=== PATIENT | female | born 1955 | race Caucasian/White ===

== ENCOUNTER → 2016-07-18 | Outpatient (CLI) | payer BC ==
--- NOTE | 2016-07-18 15:25 | MAM ---
History: Well woman exam. Date of exam: 07/18/2016 Services provided: Bilateral full field digital screening mammography. CAD, the images were reviewed with R2 computer aided detection. FINDINGS: Glandular tissue is scattered glandular contour with increased mammographic density. Comparison with 2013 and 2015 exams exam. Focal nodular asymmetry right breast 2-3 o'clock. No dominant mass or architectural distortion on the left. No clustered microcalcifications. IMPRESSION: Incomplete exam Recommendation: True lateral and spot compression views right breast. Directed ultrasound if indicated. BIRAD CATEGORY: 0 INCOMPLETE Electronically signed by: Krupa Dixon MD 07/18/2016 3:25 PM CDT Workstation: [id number]
== END | disposition home or self-care (01) ==
LOC: MAMMO 11:10
PROVIDERS: ATTEND Obstetrics & Gynecology
DX: Z12.31 Encounter for screening mammogram for malignant neoplasm of breast (principal)

== ENCOUNTER → 2016-08-04 | Outpatient (CLI) | payer BC ==
--- NOTE | 2016-08-04 15:24 | US ---
History: Medial asymmetry right breast. DATE OF SERVICE: 08/04/2016 Services provided: Full field digital diagnostic right mammography. Directed right breast sonography FINDINGS: True lateral film with spot compression views are obtained. The focal asymmetry partially effaces. Subtle adjacent calcification is seen. Glandular tissue is dense and nodular in contour. Directed ultrasound examination demonstrates an iso to minimally hypoechoic irregularly marginated 9 mm nodule with internal calcification and vascularity. PICC echogenic rim is shown. Sonographically the mass is suspicious for a small carcinoma. IMPRESSION: Suspicious exam. 9 mm sonographic nodule 2:00 corresponds to the mammographic asymmetry. Recommendation: Ultrasound-guided needle sampling. Findings and recommendations were communicated to the patient. BIRAD CATEGORY: 4 SUSPICIOUS FINDINGS Electronically signed by: Krupa Dixon MD 08/04/2016 3:23 PM CDT Workstation: [id number]
== END | disposition home or self-care (01) ==
LOC: MAMMO 14:06
PROVIDERS: ATTEND Obstetrics & Gynecology
DX: R92.8 Other abnormal and inconclusive findings on diagnostic imaging of breast (principal)

== ENCOUNTER → 2016-08-16 | Outpatient (CLI) | payer BC ==
--- NOTE | 2016-08-16 08:45 | US ---
History: Right breast nodule. Ultrasound-guided core needle biopsy right breast nodule 2:00: A total of 10 images are submitted with a needle traversing a small nodule right breast 2:00. No complication is demonstrated. IMPRESSION: Technically successful right breast needle biopsy under ultrasound guidance performed by the patient's surgeon. Electronically signed by: Krupa Dixon MD 08/16/2016 8:44 AM CDT Workstation: [id number]
--- NOTE | 2016-08-16 09:53 | OP ---
DATE OF PROCEDURE: 08/16/16 PREOPERATIVE DIAGNOSIS: 1. Abnormal mammogram with right breast mass. POSTOPERATIVE DIAGNOSIS: 1. Abnormal mammogram with right breast mass. PROCEDURE: 1. Sonographically guided needle core biopsy, right breast mass. SURGEON: Yosef Velasquez MD. RESTORATION TECHNICIAN: None. ANESTHESIA: Local infiltration of 1% lidocaine. INDICATION: The patient is a 61-year-old female who underwent mammography which revealed a solid, mildly irregular mass at the 2 o'clock position in the right breast. She was brought to the Surgical Suite today for needle core biopsy using ultrasound guidance. FINDINGS: Multiple cores were taken which the ultrasound noted the needle in the mass. PROCEDURE: After the patient was placed in the supine position, the right breast was evaluated and the mass was identified. The breast lateral to the ultrasound probe was prepped with Betadine and draped. Local infiltration of anesthesia was obtained with 1% lidocaine and a 25-gauge needle was introduced to the mass. A stab wound was then made with a 15 blade and the needle core biopsy device was advanced. Multiple passes were taken which, as noted, the ultrasound revealed them in the mass. Good cores were identified. Hemostasis was obtained with pressure. A single suture of 4-0 Nylon was placed in the biopsy incision site. Sterile pressure dressing was applied. The patient tolerated the procedure well. Estimated blood loss was approximately 5 mL. The specimen was sent for pathologic evaluation. [facility][id number] [facility]
== END | disposition home or self-care (01) ==
LOC: US 08:00
PROVIDERS: ATTEND Surgery
DX: R92.8 Other abnormal and inconclusive findings on diagnostic imaging of breast (principal)

== ENCOUNTER → 2016-08-23 | Outpatient (CLI) | payer BC ==
--- NOTE | 2016-08-23 12:53 | RAD ---
EXAM DESCRIPTION: Chest,2 Views CLINICAL HISTORY: Malignant neoplasm of upper-inner quadrant of right female breast COMPARISON: January 28, 2007 TECHNIQUE: PA/lateral FINDINGS: The lungs are well expanded and clear. No infiltrates or effusions or masses are noted. The heart is normal in size and shape with no evidence of vascular congestion. The lebron and mediastinum demonstrate normal contours. The bony spine and chest wall is normal for age in appearance. IMPRESSION: Normal chest, two views Electronically signed by: Fransisco Nettles MD 08/23/2016 12:52 PM CDT
== END ==
LOC: LAB.O 08:53
PROVIDERS: ATTEND Surgery
DX: C50.211 Malignant neoplasm of upper-inner quadrant of right female breast (principal)

== ENCOUNTER → 2016-08-25 | Outpatient (CLI) | payer BC ==
--- NOTE | 2016-08-25 16:16 | NM ---
EXAM DESCRIPTION: Bone Scan, Whole Body CLINICAL HISTORY: CA OF BREAST COMPARISON: None TECHNIQUE: Following intravenous administration of 29 mCi technetium 99 M MDP, whole body and spot scintigraphic imaging was performed. FINDINGS: Skull: Unremarkable. Spine:Degenerative uptake. No osteoblastic lesions. Thorax:Unremarkable. Pelvis:Unremarkable.tab Extremities:Degenerative uptake. No osteoblastic lesions. Soft tissue: Normal distribution of radiopharmaceutical. IMPRESSION: No scintigraphic evidence for osteoblastic metastatic disease. Electronically signed by: Ze Aguilar MD 08/25/2016 4:15 PM CDT
== END ==
LOC: NM 07:47
PROVIDERS: ATTEND Surgery
DX: C50.211 Malignant neoplasm of upper-inner quadrant of right female breast (principal)

== ENCOUNTER 2016-09-12 05:54 | Inpatient (IN) | payer BC ==
[2016-09-12] MEDS ORDERED: ceFAZolin SODIUM 1 GM VIAL ONE ×2 (06:30→14:07)
[2016-09-12] MEDS ORDERED: SODIUM CHL 0.9% 100ML MINI-BAG 100 ML IVPB ONE (06:30)
[2016-09-12] MEDS ORDERED: LACTATED RINGERS 1,000 ML ONE ×2 (06:30→10:08)
[2016-09-12] MEDS ORDERED: fentaNYL CITRATE INJ 50 MCG/ML AMP ONE (08:29)
[2016-09-12] MEDS ORDERED: ROCURONIUM BROMIDE 10 MG/ML VIAL ONE (09:04)
[2016-09-12] MEDS ORDERED: ONDANSETRON INJ 4 MG/2 ML VIAL IV PRN (11:50)
[2016-09-12] MEDS ORDERED: NEOSTIGMINE METHYLSULFATE 1 MG/ML ML IV ONE (12:00)
[2016-09-12] MEDS ORDERED: PROPOFOL 200 MG/20 ML VIAL IV ONE (12:00)
[2016-09-12] MEDS ORDERED: ATROPINE SULFATE 0.4 MG/ML 1ML VIAL IV ONE (12:00)
[2016-09-12] MEDS ORDERED: MORPHINE SULFATE INJ 10 MG/ML VIAL ONE (12:10)
--- NOTE | 2016-09-12 13:15 | HP ---
CHIEF COMPLAINT: Biopsy proven carcinoma of the right breast. HISTORY OF PRESENT ILLNESS: The patient is a 61-year-old female who on routine mammography was found to have a questionable solid mass. Needle core sonographically guided biopsy revealed invasive carcinoma. She was brought to the Surgical Suite today for right modified radical mastectomy after the risks, benefits and alternatives to the procedure were discussed and accepted. PAST MEDICAL HISTORY: 1. Depression. PAST SURGICAL HISTORY: 1. Right ovarian cystectomy. 2. Vaginal hysterectomy. CURRENT MEDICATIONS: 1. Celexa. 2. Pravastatin. ALLERGIES: NO KNOWN DRUG ALLERGIES. FAMILY HISTORY: Positive for carcinoma of the breast at approximately age 71 in her mother. SOCIAL HISTORY: The patient is . She smokes one pack a day since age 14. Currently, she has chronic usually nonproductive cough. She does drink on a daily basis. REVIEW OF SYSTEMS: There has been no weight loss, nipple discharge, no productive cough, no change in her bowel habits, no weight loss. ASSESSMENT: 1. Biopsy proven carcinoma of the right breast. PLAN: Admission for right modified radical mastectomy under general anesthesia. The patient will be given Ancef perioperatively. #[id number] [facility]
[2016-09-12] MEDS: LACTATED RINGERS 1,000 ML IVS PRN (13:17)
--- NOTE | 2016-09-12 13:39 | OP ---
DATE OF PROCEDURE: 09/12/16 PREOPERATIVE DIAGNOSIS: 1. Biopsy proven carcinoma of the right breast. POSTOPERATIVE DIAGNOSIS: 1. Biopsy proven carcinoma of the right breast. PROCEDURE: 1. Right modified radical mastectomy. SURGEON: Yosef Velasquez MD. PRINCIPAL STATISTICAL PROGRAMMER: None. ANESTHESIA: General endotracheal. INDICATION: The patient is a 61-year-old female who on routine mammography was found to have a solid mass. Biopsy revealed an invasive carcinoma. The risks, benefits and alternatives to the procedure were discussed including lumpectomy with radiation therapy and the option of sentinel node biopsy. The patient wishes to stay in [place] and have a right modified radical mastectomy. She was brought to the Surgical Suite today for same. FINDINGS: Pathology is pending. PROCEDURE: After the patient received the Ancef and underwent general endotracheal anesthesia, she was prepped and draped in the usual sterile manner. Surgical time-out was taken. At this point, an elliptical incision was fashioned around the nipple-areolar complex including the biopsy site, first with a marking pen and then the superior flap, the skin was incised with a sharp knife and dissection was carried down through the skin and subcutaneous tissue to the breast tissue using electrocautery. At this point, Vibha thyroid grasping forceps were placed on the skin edges and the superior flap was taken in the usual manner with electrocautery, taken to the sternum medially, to the clavipectoral fascia superiorly and then to the axilla. When this flap was taken, a moist sponge was placed under the flap and the inferior flap was taken in a like manner down to the rectus abdominis fascia. When this was done, the breast was taken from the chest wall from superior and medial to lateral. Dissection was then carried into the axilla. The axillary vein was identified, as were the thoracodorsal bundle and the long thoracic nerve of Lynch. Dissection was then carried including the tissue anterior to the thoracodorsal bundle and the long thoracic nerve of Lynch and back to the breast tissue. The specimen was then sent for pathologic evaluation. The wound was irrigated copiously with saline. The effluent was noted to be clear. Hemostasis was noted to be adequate. At this point, two drains were placed, one in the axilla and one in the chest wall. They were brought in through the inferior flap, sutured in place with 3-0 Nylon ligatures. When this was done, the subcutaneous tissue was reapproximated with running 3-0 Vicryl. The wound was then irrigated through the wound and aspirated out through the drains. The skin edges were approximated with a skin stapler. The drains were placed to closed grenade suction drainage. Sterile dressing was applied. The patient was then awakened and taken to the Recovery Room in stable condition . Estimated blood loss was 150 mL. All sponge, needle and instrument counts were correct. #[id number] [facility]
[2016-09-12] MEDS ORDERED: ceFAZolin SODIUM 2 GM in SODIUM CHLORIDE 0.9% 100ML 100 ML IVPB SCH (14:00)
[2016-09-12] MEDS ORDERED: SODIUM CHLORIDE 0.9% (FLUSH) 10 ML SYG IV PRN (14:00)
[2016-09-12] MEDS ORDERED: SODIUM CHL 0.9% 50ML MIN-BAG+ 50 ML IVPB ONE (14:08)
[2016-09-12] MEDS ORDERED: CEFAZOLIN SODIUM 2 GRAM IV 50 ML IVPB ONE ×2 (14:41→19:56)
[2016-09-12] MEDS: CEFAZOLIN SODIUM 2 GRAM IV 2 GM in PREMIX BAG 1 BAG IVPB SCH ×2 (15:08→22:24)
[2016-09-12] MEDS: HYDROmorphone HCL INJ 2 MG/ML VIAL IV PRN ×2 (15:53→19:50)
[2016-09-12] MEDS ORDERED: NICOTINE PATCH 21 MG TD SCH (18:30)
[2016-09-12] MEDS ORDERED: chlordiazePOXIDE HCL 5 MG CAP PO PRN (19:25)
[2016-09-12] MEDS ORDERED: THIAMINE HCL INJ 100 MG/ML VIAL IV SCH (19:30)
[2016-09-12] MEDS ORDERED: ENOXAPARIN SODIUM 40 MG/0.4 ML SYG SUBCU ONE (19:56)
[2016-09-12] MEDS ORDERED: POTASSIUM CHLORIDE 10 MEQ TAB PO SCH (21:00)
[2016-09-12] MEDS ORDERED: POTASSIUM CHLORIDE 10 MEQ TAB PO ONE (21:02)
[2016-09-12] MEDS: PRENATAL MULTIVIT-MIN W/FE-FA 1 EA TAB PO SCH (21:08)
[2016-09-12] MEDS: chlordiazePOXIDE HCL 5 MG CAP PO SCH (21:08)
[2016-09-12] MEDS: ENOXAPARIN SODIUM 40 MG/0.4 ML SYG SUBCU SCH (21:09)
[2016-09-13] MEDS: chlordiazePOXIDE HCL 5 MG CAP PO SCH ×3 (02:53→19:54)
[2016-09-13] MEDS: HYDROcodone 5MG/APAP 325MG 1 EA TAB PO PRN ×5 (03:14→22:53)
[2016-09-13] MEDS ORDERED: CEFAZOLIN SODIUM 2 GRAM IV 50 ML IVPB ONE ×3 (05:35→19:34)
[2016-09-13] MEDS: LACTATED RINGERS 1,000 ML IVS PRN (05:43)
[2016-09-13] MEDS: CEFAZOLIN SODIUM 2 GRAM IV 2 GM in PREMIX BAG 1 BAG IVPB SCH ×3 (05:43→22:35)
[2016-09-13] MEDS: PANTOPRAZOLE SODIUM TAB 40 MG PO SCH (05:45)
--- NOTE | 2016-09-13 07:57 | CONS ---
HISTORY OF PRESENT ILLNESS: This 61 year-old white female was admitted earlier this morning for elective modified radical mastectomies on the right because of a biopsy-proven invasive carcinoma within that breast. Biopsy was obtained by needle core sonographically guided procedure. She has had a family history of high significance with most of the women having with breast cancer. She tolerated the procedure quite well and is now in the rehabilitation and recovery phase with a chest wall binder in place and is generally doing fairly well with analgesia as required. She is otherwise awake, alert, and contributory. PAST MEDICAL HISTORY: Generally unremarkable except as relates to her current illness. PAST SURGICAL HISTORY: 1. Earlier this morning a right modified mastectomy for cancer. 2. Hysterectomy. 3. Ovarian cyst. 4. Appendectomy. CURRENT MEDICATIONS: 1. Bioflavonoids. 2. Corzyme Q10. 3. [place]ar[place]. 4. Advil. 5. Potassium. 6. Pravastatin. 7. Pravachol 40 mg daily. 8. Tramadol p.r.n. 9. Maxzide. 10. Celexa. ALLERGIES: NONE KNOWN. FAMILY HISTORY: Positive for cancer, diabetes, amyotrophic lateral sclerosis, coronary artery disease and strokes. SOCIAL HISTORY: She is a homemaker. She smokes one or more packs of cigarettes a day. She drinks beer between 8 and 10 cans per day, sometimes more. She has been intoxicated in the past and has poor memory of those occasions. General nutrition has not been as good as it could be and is encouraged to stop the smoking and the alcohol with suggestions given. REVIEW OF SYSTEMS: GENERAL: No significant weight change, no fever and chills. HEENT: No hearing or vision disturbances. LUNGS: Occasional cough, no significant hemoptysis. CARDIOVASCULAR: No significant angina or palpitations. GI: No nausea or vomiting, blood in the stool or the emesis. : No dysuria. EXTREMITIES: Trace edema at times. NEUROLOGIC: No focal weakness. No significant headaches. PHYSICAL EXAMINATION: VITAL SIGNS: Afebrile. Pulse 82, blood pressure 148/76. Pulse oximetry 94% on room air. Weight 60.3 kg. GENERAL: The patient is awake, alert, and oriented and communicative. Other members of the family are also present to assist with the history. HEENT: Within normal limits. NECK: Supple. No increased jugular venous distention. CHEST: Thoracic binder in place. HEART: Heart tones are somewhat distant yet regular. Breath sounds are fairly equal bilaterally though somewhat diminished. ABDOMEN: Soft with no organomegaly or masses. Her last bowel movement was yesterday. Bowel tones are somewhat diminished. EXTREMITIES: Well-formed, good range of motion. No significant edema. NEUROLOGIC: No focal neurological deficits. Patient is awake, alert, and oriented and communicative. LABORATORY: White count 10,800, hemoglobin 14.8 preparatively. Chemistries show potassium was down to 3 at 8:40 postoperatively PM. BUN 10, creatinine 0.49, glucose 103. Urinalysis with 2+ bacteruria but no culture obtained. ASSESSMENT: 1. Immediate postoperative day #0 right modified mastectomy for invasive carcinoma diagnosed on needle biopsy. 2. History of chronic tobacco use. 3. History of chronic alcohol intake requiring close observation to prevent withdrawal symptoms. 4. History of hypokalemia showing recurrence probably secondary to Maxzide use. 5. Mild nutritional deficiencies with folate with enlarged red blood cell indices noted. PLAN: We will observe closely postoperatively for evidence of ethanol withdrawal syndrome. Will try some low-dose Librium on a regular basis and p.r.n. doses as needed for increased agitation. Will be given vitamins with folate as well as IV thiamin to assist with nutritional improvement. Continue with potassium supplementation yet increase. Stop diuretics at the present time. Reevaluate in the morning. [facility][id number] [facility]
[2016-09-13] MEDS: PRENATAL MULTIVIT-MIN W/FE-FA 1 EA TAB PO SCH ×2 (09:38→20:27)
[2016-09-13] MEDS: CITALOPRAM HBR 20 MG TAB PO SCH (09:38)
[2016-09-13] MEDS: THIAMINE HCL INJ 100 MG in SODIUM CHLORIDE 0.9% 100ML 100 ML IVPB SCH (09:39)
[2016-09-13] MEDS: POTASSIUM CHLORIDE 10 MEQ TAB PO SCH ×3 (09:41→17:27)
--- NOTE | 2016-09-13 11:36 | PN ---
DATE: 09/13/16 SUBJECTIVE: The patient is able to sit up in the bed and is able to get out of the bed quite smoothly. No significant postural lightheadedness is evident. She is awake and alert and very comfortable. She does not feel over sedated with the use of the Librium on a regular basis. She is taking her food and fluids quite well. OBJECTIVE: VITAL SIGNS: Afebrile. Pulse 76. Blood pressure 104/65. Pulse oximetry 97% on room air. Weight stable at 60.3 kg. GENERAL: The patient is awake, alert, oriented and communicative. LUNGS: Generally clear to auscultation, clearer than last evening. Still, she clears some secretions out of the back of her throat. Some intermittent rhonchi on inspiration noted, yet clear with clearing of secretions in the back of her throat. HEART: Regular. ABDOMEN: Soft with improved bowel tones. Encouraged to actively contract muscles of the lower extremity to assist with DVT prophylaxis. LABORATORY: White count 7,400, hemoglobin down from 14.8 to 11.7. Chemistries showed potassium last evening was up to 3.3 from 3 with supplementation. Glucose 94, calcium 8 this morning. Cholesterol 154. Urine culture pending. ASSESSMENT: 1. Postoperative day #1, right modified radical mastectomy for invasive carcinoma, diagnosed by needle biopsy. 2. History of chronic tobacco use. 3. History of chronic ethanol intake, requiring close observation to prevent withdrawal symptomatology. 4. History of hypokalemia, showing improvement with supplementation and stopping the Maxzide. 5. Mild nutritional deficiencies with folate with an enlarged red blood cell indices and supplementation initiated. PLAN: Continue to encourage deep breathing and active contraction and relaxation of her lower extremity muscles. Continue with her ongoing rehabilitation with attention to the volume of bulb drainage from the wound site. Continue with nutrition and close observation. Tolerating increased activity quite well and is able to get adequate fluids down. We will be able to continue with outpatient management when clinical stable from 's standpoint. [facility][id number] [facility]
[2016-09-13] MEDS ORDERED: NICOTINE PATCH 21 MG TD ONE (19:34)
[2016-09-13] MEDS: ENOXAPARIN SODIUM 40 MG/0.4 ML SYG SUBCU SCH (21:00)
[2016-09-13] MEDS ORDERED: NICOTINE PATCH 21 MG TD SCH (21:00)
[2016-09-14] MEDS: chlordiazePOXIDE HCL 5 MG CAP PO SCH (03:02)
[2016-09-14] MEDS ORDERED: CEFAZOLIN SODIUM 2 GM IVPB ONE (05:13)
[2016-09-14] MEDS: PANTOPRAZOLE SODIUM TAB 40 MG PO SCH (05:30)
[2016-09-14] MEDS: CEFAZOLIN SODIUM 2 GRAM IV 2 GM in PREMIX BAG 1 BAG IVPB SCH (05:31)
[2016-09-14] MEDS: HYDROcodone 5MG/APAP 325MG 1 EA TAB PO PRN ×2 (05:34→09:30)
[2016-09-14 06:19] VITALS: TEMP 97.6; O2SAT 96
[2016-09-14] MEDS ORDERED: THIAMINE HCL INJ 100 MG/ML VIAL ONE (07:37)
[2016-09-14] MEDS ORDERED: CEFAZOLIN SODIUM 2 GRAM IV 50 ML IVPB ONE (07:37)
[2016-09-14] MEDS ORDERED: SODIUM CHLORIDE 0.9% 100ML 0 ML IVPB ONE (07:38)
[2016-09-14] MEDS: POTASSIUM CHLORIDE 10 MEQ TAB PO SCH (07:48)
[2016-09-14] MEDS ORDERED: IV SET AND CAP CHANGE INJ INJ SCH (09:00)
[2016-09-14] MEDS: PRENATAL MULTIVIT-MIN W/FE-FA 1 EA TAB PO SCH (09:17)
[2016-09-14] MEDS: CITALOPRAM HBR 20 MG TAB PO SCH (09:17)
[2016-09-14] MEDS: THIAMINE HCL INJ 100 MG in SODIUM CHLORIDE 0.9% 100ML 100 ML IVPB SCH (09:18)
--- NOTE | 2016-09-14 09:54 | DS ---
FINAL DIAGNOSIS: 1. Carcinoma of the right breast pending pathology report. SURGICAL PROCEDURE: Right modified radical mastectomy on 09/12/16. HISTORY OF PRESENT ILLNESS: The patient is a 61-year-old female who on routine mammography was found to have a questionable solid mass. Needle core sonographically guided biopsy revealed invasive carcinoma. She was brought to the Surgical Suite today for right modified radical mastectomy after the risks, benefits and alternatives to the procedure were discussed and accepted. LABORATORY: Postoperative hemoglobin 11.7, white count 7.4, normal differential , platelet count 210,000. Preoperative chest x-ray was clear. HOSPITAL COURSE: The patient was admitted to the Surgical Suite where she underwent the modified radical mastectomy. Postoperatively, she remained afebrile and normotensive throughout her hospitalization. Her urine output was excellent with over 2 liters on the first postoperative day. She also had a bowel movement. Her MAURICIO drainage for the 24 hours prior to discharge was 105 mL and 88 mL respectively from the two drains. By the first postoperative morning , she was advanced to a regular diet. Her Rodriguez catheter was removed. She was changed to oral analgesics. Her Ancef was discontinued. She tolerated these changes well. On the second postoperative morning, she was discharged home. CONDITION ON DISCHARGE: Excellent. PROGNOSIS: Pending pathology report. DISPOSITION: She is discharged on her regular diet and all her home medications. She was also given a prescription for hydrocodone 5 mg, #40. She has agreed to continue the nicotine patch at home, which will be 21 mg per 24 hours. She is discharged with a home health consultation to [facility]. They are to call daily with the output of the MAURICIO drains. She will be appointed to see me next Monday in my office and they are instructed to call me if they have any other questions or problems. #[id number] [facility]
[2016-09-14 11:25] VITALS: BP 109/72
== END 2016-09-14 11:00 | disposition home health service (06) | DRG 581 ==
LOC: AMB 05:54 → MS 13:00
PROVIDERS: ADMIT Surgery; ATTEND Surgery
PROC: 07B50ZX Excision of Right Axillary Lymphatic, Open Approach, Diagnostic (ICD-10-PCS; 2016-09-12)
PROC: 0HTT0ZZ Resection of Right Breast, Open Approach (ICD-10-PCS; principal; 2016-09-12 08:48)
DX: C50.911 Malignant neoplasm of unspecified site of right female breast (principal); E87.6 Hypokalemia; T50.2X5A Adverse effect of carbonic-anhydrase inhibitors, benzothiadiazides and other diuretics, initial encounter; E53.8 Deficiency of other specified B group vitamins; F32.9 Major depressive disorder, single episode, unspecified; F17.210 Nicotine dependence, cigarettes, uncomplicated; Z80.3 Family history of malignant neoplasm of breast; Z79.1 Long term (current) use of non-steroidal anti-inflammatories (NSAID); Z79.899 Other long term (current) drug therapy; Z72.89 Other problems related to lifestyle; Y92.009 Unspecified place in unspecified non-institutional (private) residence as the place of occurrence of the external cause

== ENCOUNTER 2016-10-17 05:52 | Day surgery (SDC) | payer BC ==
[2016-10-17] MEDS ORDERED: SODIUM CHL 0.9% 100ML MINI-BAG 100 ML IVPB ONE (06:34)
[2016-10-17] MEDS ORDERED: ceFAZolin SODIUM 1 GM VIAL ONE (06:34)
[2016-10-17] MEDS ORDERED: LACTATED RINGERS 1,000 ML ONE (06:34)
[2016-10-17] MEDS ORDERED: SODIUM BICARBONATE VIAL 50 MEQ/50 ML VIAL ONE (08:23)
[2016-10-17] MEDS ORDERED: LIDOCAINE 1% 50 ML VIAL INJ ONE (08:23)
[2016-10-17] MEDS ORDERED: HEPARIN SODIUM 100 U/ML 5 ML SYG IV ONE (08:24)
[2016-10-17] MEDS ORDERED: SODIUM CHLORIDE 0.9% 50 ML VIAL ONE (08:24)
[2016-10-17] MEDS ORDERED: fentaNYL CITRATE INJ 50 MCG/ML AMP ONE (08:36)
[2016-10-17] MEDS ORDERED: MIDAZOLAM INJ 5 MG/5 ML VIAL ONE (08:36)
[2016-10-17] MEDS ORDERED: LEVALBUTEROL NEBS 1.25 MG/3 ML VIAL NEB ONE (08:42)
[2016-10-17] MEDS ORDERED: LIDOCAINE 1% 10 ML VIAL INJ ONE (09:00)
[2016-10-17] MEDS ORDERED: PROPOFOL 200 MG/20 ML VIAL IV ONE (09:00)
[2016-10-17] MEDS ORDERED: POTASSIUM CHLORIDE 40mEq 20ML VIAL ONE (09:33)
[2016-10-17] MEDS ORDERED: SODIUM CHLORIDE 0.9% 250ML 250 ML ONE (09:49)
[2016-10-17] MEDS ORDERED: LIDOCAINE 2% 5 ML VIAL ONE (10:20)
[2016-10-17 10:39] VITALS: BP 140/80; TEMP 96.8; O2SAT 97
--- NOTE | 2016-10-17 10:42 | OP ---
DATE OF PROCEDURE: 10/17/16 PREOPERATIVE DIAGNOSIS: 1. Carcinoma of the right breast, to begin adjuvant chemotherapy. POSTOPERATIVE DIAGNOSIS: 1. Carcinoma of the right breast, to begin adjuvant chemotherapy. PROCEDURE: 1. Insertion of left subclavian venous access port. SURGEON: Yosef Velasquez MD. ROBOT DESIGNER: None. ANESTHESIA: Local infiltration of 1% lidocaine and IV sedation by Anesthesia. INDICATION: The patient is a 61-year-old female who underwent mastectomy for right breast carcinoma. She turned out to have multicentric disease as she has been seen by oncology and chemotherapy is planned. She was brought to the Surgical Suite today for insertion of a left subclavian venous access port after the risks, benefits and alternatives to the procedure were discussed and accepted. FINDINGS: The subclavian vein was identified with the first stick using a 25- gauge needle. The fluoroscopy revealed the guidewire and then the catheter in the superior vena cava. Post procedure chest x-ray is pending. PROCEDURE: After the patient was brought to the Surgical Suite and placed in the supine position, she was prepped and draped in the usual sterile manner. A surgical time-out was taken. IV sedation was given at this time. The infraclavicular area was infiltration with local anesthesia and the 25-gauge needle was easily introduced under the clavicle and advanced until venous blood was aspirated. The 18-gauge thin wall needle was then introduced in the same manner. Venous blood was aspirated. The guidewire was introduced without difficulty to approximately 25 cm. The needle was removed. A towel was placed over the field and fluoroscopy was used to identify the guidewire in good position. A port pocket was then formed in the usual manner with local infiltration of anesthesia, a sharp knife, electrocautery and blunt dissection. A stab wound was made over the guidewire at the insertion site. At this point , the catheter was tunneled from the port pocket to the insertion site. The port was then introduced into the port pocket and sutured in placed with two sutures of 3-0 Prolene. When these were tightened and tied, the catheter was cut to appropriate length. The dilator introducer was introduced over the guidewire. The guidewire and dilator were removed. The catheter was introduced through the introducer and the introducer was removed in the usual manner. At this point, the catheter is accessed with the Lamas needle. Venous blood was easily aspirated. It was then flushed first with 10 cc of heparinized saline and then with heplock. When this was done, a towel was placed over the field and fluoroscopy was used to identify the catheter in adequate position. The port pocket incision was then closed in two layers with the subcutaneous tissues reapproximated with interrupted 3-0 Vicryl sutures and the skin edges approximated with 4-0 Vicryl subcuticular sutures, benzoin and Steri-Strips, as was the insertion site. When this was done, sterile dressings were applied. The patient was awakened and taken to the Ambulatory Unit in stable condition. Estimated blood loss was approximately 25 cc. All sponge, needle and instrument counts were correct. #[id number] [facility]
--- NOTE | 2016-10-17 11:12 | RAD ---
Study: Single Frontal View of the Chest. Indication:POST PORT PLACEMENT Comparison: August 23, 2016. IMPRESSION: Left subclavian venous port tip terminates in the distal brachiocephalic vein. Heart size normal. Lungs clear. No pneumothorax. No acute osseous abnormality. Electronically signed by: Lc Velez MD 10/17/2016 11:11 AM CDT
== END 2016-10-17 11:45 | disposition home or self-care (01) ==
LOC: AMB 05:52
PROVIDERS: ATTEND Surgery
DX: C50.911 Malignant neoplasm of unspecified site of right female breast (principal); F41.9 Anxiety disorder, unspecified; E78.5 Hyperlipidemia, unspecified; J44.9 Chronic obstructive pulmonary disease, unspecified; F17.210 Nicotine dependence, cigarettes, uncomplicated; Z79.899 Other long term (current) drug therapy
CPT/HCPCS: 00532; 36415; 36561; 71010; 80048; 81001; 85025; A4216; C1788; J0690; J1642; J2250; J3010; J3480; J3490; J7050; J7120; J7614

== ENCOUNTER 2016-11-16 02:59 | Emergency (ER) | payer BC ==
--- NOTE | 2016-11-16 03:03 | ED.PDOC ---
History of Present Illness - General Chief Complaint: ENT Problem Stated Complaint: sore throat Time Seen by Provider: 11/16/16 03:01 Source: patient Exam Limitations: no limitations - History of Present Illness Initial Comments: Telma Hernandez 61 y/o female stated that the last 2 days had been having achy throat presently on her 2nd dose of chemotherapy for stage 2-A breast cancer right breast;denies fever chills but also with cough and congestion. Timing/Duration: gradual EENT Location: throat Prearrival Treatment: over the counter meds Presenting Symptoms: see hpi Improving Factors: nothing Worsening Factors: eating Associated Symptoms: cough, nasal congestion/drainage Allergies/Adverse Reactions: Allergies NO KNOWN ALLERGY Allergy (Unverified 07/05/14 21:24) Home Medications: Ambulatory Orders Tramadol HCl [Ultram] 50 mg PO Q6H #20 tab 07/21/14 Bioflavonoid Products [Bioflex] 1 tab PO PRN PRN 09/09/16 Citalopram Hydrobromide [CeleXA] 20 mg PO DAILY 09/09/16 Coenzyme Q10 (Ubidecarenone) [Co Q-10] 150 mg PO DAILY 09/09/16 Guarana (Paullinia Cupana) [Guarana] 1,000 mg PO PRN PRN 09/09/16 Ibuprofen [Advil] 600 mg PO DAILY@69909/09/16 Potassium 75 mg PO PRN PRN 09/09/16 Pravastatin Sodium [Pravachol] 40 mg PO DAILY@0709/09/16 Triamterene & Hydrochlorothiaz [Triamterene/Hydrochloroth] 1 cap PO DAILY@69909/09/16 HYDROcodone 5MG/APAP 325MG [Windfall 5/325] 1 - 2 ea PO Q4H PRN #40 09/14/16 Nicotine Patch 21 mg [Habitrol Patch 21mg] 1 ea TD BEDTIME 09/14/16 Potassium Chloride Tab [Micro-K] 20 meq PO TIDFD 09/14/16 levoFLOXacin [Levaquin] 500 mg PO QD #7 tab 11/16/16 Review of Systems - Review of Systems Constitutional: States: no symptoms reported EENTM: States: see HPI Respiratory: States: see HPI Cardiology: States: no symptoms reported Gastrointestinal/Abdominal: States: no symptoms reported Genitourinary: States: no symptoms reported Past Medical History (General) - Patient Medical History Hx Seizures: No Hx Stroke: No Hx Dementia: No Hx Asthma: No Hx of COPD: No Hx Cardiac Disorders: No Hx Congestive Heart Failure: No Hx Pacemaker: No Hx Hypertension: No Hx Thyroid Disease: No Hx Diabetes: No Hx Renal Disease: No Hx Cancer: Yes - breast Hx of HIV: No Hx MRSA: No Surgical History: other - mastectomy right,hysterectomy - Vaccination History Hx Tetanus, Diphtheria Vaccination: No - over 5 years - Social History Hx Tobacco Use: Yes Hx Alcohol Use: Yes - Activities of Daily Living Patient Lives Alone: No - daughter - Female History Patient : No Family Medical History - Family History Mother Family History: Unknown Hx Family Cancer: Yes - breast multiple family members Physical Exam - Physical Exam General Appearance: Alert, No apparent distress Eye Exam: bilateral normal Ear Exam: bilateral ear: auricle normal, canal normal, TM normal Nasal Exam: discharge - clear Throat Exam: normal mouth inspection, other - pharyngeal erythema Neck: non-tender, supple, normal inspection Cardiovascular/Respiratory: regular rate, rhythm, normal peripheral pulses, rales - left side Neurologic: no motor/sensory deficits, alert, oriented x 3 Skin Exam: normal color, warm/dry Progress - Progress Progress: 11/16/16 05:02 Vital Signs - 8 hr 11/16/16 03:16 Temperature 102.4 F H Pulse Rate [ 96 H Right] Respiratory 16 Rate Blood Pressure 116/68 [Left Arm] O2 Sat by Pulse 93 L Oximetry Laboratory Tests 11/16/16 11/16/16 03:02 03:45 WBC 3.4 L RBC 3.24 L Hgb 10.3 L Hct 30.1 L MCV 92.9 MCH 31.7 H MCHC 34.1 RDW 14.0 Plt Count 155 MPV 9.3 Absolute Neuts (auto) 2.20 Absolute Lymphs (auto) 0.60 L Absolute Monos (auto) 0.60 Absolute Eos (auto) 0.00 Absolute Basos (auto) 0.00 Neutrophils % Not Reportable Neutrophils % (Manual) 35.0 Lymphocytes % Not Reportable Lymphocytes % (Manual) 18.0 Monocytes % Not Reportable Monocytes % (Manual) 22.0 Eosinophils % Not Reportable Basophils % Not Reportable Band Neutrophils 25.0 RBC Morphology 2+spherocytes Group A Strep DNA Negative Departure - Departure Clinical Impression: Sore throat, Leukopenia due to antineoplastic chemotherapy, History of breast cancer in female, Bronchitis Time of Disposition: 05:05 Disposition: Discharge to Home or Self Care Condition: Fair Departure Forms: ED Discharge - Pt. Copy, Patient Portal Self Enrollment Instructions: DI for Chemotherapy -- Adult, Problems Related to Chemotherapy, Tips on Coping With Mouth, Gum, and Throat Problems Related to Chemotherapy, Coping With the Side Effects of Chemotherapy, Coping With Pain Related to Cancer and Chemotherapy, Coping With Hair Loss From Chemotherapy, Tips on Preventing Infection Related to Chemotherapy, Eating Well While Receiving Chemotherapy, Cancer Chemotherapy Support (Alternative Therapy) Referrals: Aneesh Nieves MD [Primary Care Provider] - 1-2 Weeks Prescriptions: levoFLOXacin [Levaquin] 500 mg PO QD #7 tab Home Medications: Ambulatory Orders Tramadol HCl [Ultram] 50 mg PO Q6H #20 tab 07/21/14 Bioflavonoid Products [Bioflex] 1 tab PO PRN PRN 09/09/16 Citalopram Hydrobromide [CeleXA] 20 mg PO DAILY 09/09/16 Coenzyme Q10 (Ubidecarenone) [Co Q-10] 150 mg PO DAILY 09/09/16 Guarana (Paullinia Cupana) [Guarana] 1,000 mg PO PRN PRN 09/09/16 Ibuprofen [Advil] 600 mg PO DAILY@0709/09/16 Potassium 75 mg PO PRN PRN 09/09/16 Pravastatin Sodium [Pravachol] 40 mg PO DAILY@0709/09/16 Triamterene & Hydrochlorothiaz [Triamterene/Hydrochloroth] 1 cap PO DAILY@69909/09/16 HYDROcodone 5MG/APAP 325MG [Windfall 5/325] 1 - 2 ea PO Q4H PRN #40 09/14/16 Nicotine Patch 21 mg [Habitrol Patch 21mg] 1 ea TD BEDTIME 09/14/16 Potassium Chloride Tab [Micro-K] 20 meq PO TIDFD 09/14/16 levoFLOXacin [Levaquin] 500 mg PO QD #7 tab 11/16/16 Additional Instructions: NEED TO CALL ONCOLOGIST Dr. MATIAS in am during office hours by patient;OVER THE COUNTER MEDICATION-Benadryl Lquid,Maalox Liquid ,Chloraseptic liquid-MIX a Teaspoon each then swish inside mouth for 15 seconds and spit out use 3 x a day; Return to emergency room as needed
[2016-11-16 03:21] VITALS: O2SAT 93
--- NOTE | 2016-11-16 03:49 | RAD ---
Procedure: XR CHEST 2 VIEWS Exam Date: 11/16/2016 Ordering Provider: Chito Huber Clinical Indication: rales Comparison: 10/17/2016 Findings: Left chest portacatheter with tip stable in position. Cardiomediastinal silhouette is within normal limits. Focal lung consolidation: Lingular subsegmental atelectasis and/or infiltrate. Right lung is clear. Pleural effusion: None Pneumothorax: None Acute bony or soft tissue abnormality: None Impression: 1. Lingular subsegmental atelectasis and/or infiltrate. Electronically signed by: Timmy Rivera MD 11/16/2016 3:48 AM CDT
[2016-11-16] MEDS ORDERED: levoFLOXacin 500MG IV 500 MG in PREMIX BAG 1 BAG IVPB ONE (04:58)
[2016-11-16] MEDS ORDERED: PROMETHAZINE HCL INJ 25 MG/ML VIAL IM ONE (04:59)
[2016-11-16] MEDS ORDERED: MORPHINE SULFATE INJ 10 MG/ML VIAL IV ONE (04:59)
[2016-11-16] MEDS ORDERED: levoFLOXacin 500MG IV 100 ML IVPB ONE (05:05)
[2016-11-16] MEDS ORDERED: HYDROCOD/APAP 7.5/325 (ER DISP) #3 TAB PO ONE (05:13)
[2016-11-16] MEDS ORDERED: MORPHINE SULFATE INJ 10 MG/ML VIAL IM ONE (05:18)
[2016-11-16] MEDS ORDERED: levoFLOXacin 500 MG TAB PO ONE (05:19)
[2016-11-16 05:39] VITALS: BP 120/70; TEMP 101.2
== END 2016-11-16 05:46 | disposition home or self-care (01) ==
LOC: ER 02:59
DX: C50.919 Malignant neoplasm of unspecified site of unspecified female breast (principal); D70.1 Agranulocytosis secondary to cancer chemotherapy; J40 Bronchitis, not specified as acute or chronic; Z90.10 Acquired absence of unspecified breast and nipple; Z79.899 Other long term (current) drug therapy
CPT/HCPCS: 36415; 71020; 81001; 85025; 87070; 87086; 87651; J1956; J2270; J2550

== ENCOUNTER → 2017-03-14 | Outpatient (CLI) | payer BC ==
--- NOTE | 2017-03-14 20:03 | CT ---
EXAM DESCRIPTION: Abdomen/Pelvis w/wo Contrast: Computed Tomography. CLINICAL HISTORY: BREAST CANCER COMPARISON: None. TECHNIQUE: Spiral-axial scans at 5.0 mm intervals through the abdomen and pelvis before and after standard dose nonionic IV contrast. No oral contrast. Coronal and sagittal 2.0 mm reconstructions. 5 mm Delayed helical-axial scans, liver through the pubic symphysis. No adverse reactions. Total Exam DLP 2232.01 mGy - cm. This exam was performed according to our departmental CT dose-optimization program which includes automated exposure control, adjustment of the mA and/or kV according to patient size and/or use of iterative reconstruction technique; to reduce radiation dose to as low as reasonably achievable (ALARA). FINDINGS: Lung bases and pleura: Unremarkable. Liver, Stomach, Spleen, Adrenal Glands: Heterogeneous low-density of the liver. No hepatomegaly or focal lesions. Smooth capsule. No intrahepatic biliary dilatation. Radiodense material in the distal esophagus with small hiatal hernia. Stomach otherwise unremarkable. Other solid organs are negative. Pancreas, Gallbladder, Ducts: Gallbladder visualized. Common bile duct minimally dilated proximally. Pancreas negative. Kidneys and Ureters: 1.5 mm radiodense stone in the lower collecting system of the left kidney and similar size stone in the inferior collecting system of the right kidney with no hydronephrosis bilaterally. Unremarkable enhancement and no perinephric edema. Bilateral ureters are negative. Mesentery: No free fluid or free air. Aorta: Moderate atherosclerotic calcification. Minimal intimal wall thickening. Small Bowel: Fluid within most of the small bowel with small air-fluid levels. No obstruction. Terminal Ileum/Cecum: Normal caliber. Surgical clips inferior cecum. Appendix not seen. Colon: Normal caliber and fecal material throughout. Diverticula are increasing in number proximally to distally. No complications. Pelvic Organs: Vaginal cuff visualized. No fluid in the cul-de-sac. Small ovaries in the adnexa. No pelvic masses. Spine and Bony Pelvis: Lumbar levoscoliosis. Minimal spondylosis. No sclerotic or lytic lesions. Abdominal Wall/Back Soft Tissues: Unremarkable. IMPRESSION: 1. Steatosis of the liver but no enlargement. No ascites. No intrahepatic biliary dilatation. 2. Common bile duct may be enlarged proximally. Consider right upper quadrant ultrasound evaluation. 3. Bilateral renal stones less than 2 mm in diameter in the lower collecting systems. No hydronephrosis. 4. Diverticulosis of the colon more numerous distally without complications. Fluid in most of the small bowel with some air-fluid levels but no obstruction. Electronically signed by: German Thomas MD 03/14/2017 8:02 PM [employer]
== END ==
LOC: CT 08:56
PROVIDERS: ATTEND Internal Medicine Hematology & Oncology
DX: M25.552 Pain in left hip (principal); R10.2 Pelvic and perineal pain; C50.511 Malignant neoplasm of lower-outer quadrant of right female breast; K76.0 Fatty (change of) liver, not elsewhere classified; K57.30 Diverticulosis of large intestine without perforation or abscess without bleeding; N20.0 Calculus of kidney

== ENCOUNTER → 2017-03-16 | Outpatient (CLI) | payer BC ==
--- NOTE | 2017-03-27 11:41 | NM ---
EXAM DESCRIPTION: Bone Scan, Whole Body CLINICAL HISTORY: BREAST CANCER, LEFT HIP PAIN COMPARISON: Nuclear medicine bone scan dated August 25, 2016. TECHNIQUE: Following intravenous administration of 25 mCi technetium 99 M MDP, whole body and spot scintigraphic imaging was performed. FINDINGS: Skull: Unremarkable. Spine: No osteoblastic metastatic lesions. Thorax: Physiologic homogeneous radiotracer activity within the bilateral ribs and sternum. No osteoblastic metastatic lesions. Abdomen and pelvis: Urinary activity within the bilateral kidneys and urinary bladder. Urine contamination demonstrated within the expected location of the external genitalia region and clothing. Symmetric physiologic radiotracer activity is seen of the bilateral hip joints and proximal femurs. Extremities: Degenerative uptake within the bilateral shoulder joints, elbow joints, knee joints, and ankle joints. IMPRESSION: 1. No scintigraphic evidence for osteoblastic metastatic disease. 2. Degenerative uptake within the bilateral shoulder, elbow, knee, and ankle joints. 3. Urine contamination in the expected location of the external genitalia and over clothing. Electronically signed by: Randal Drake MD 03/27/2017 11:39 AM [facility]
== END ==
LOC: NM 09:46
PROVIDERS: ATTEND Internal Medicine Hematology & Oncology
DX: C50.511 Malignant neoplasm of lower-outer quadrant of right female breast (principal); M25.552 Pain in left hip; R10.2 Pelvic and perineal pain

== ENCOUNTER 2017-05-08 20:23 | Emergency (ER) | payer BC ==
[2017-05-08 20:52] VITALS: O2SAT 99
[2017-05-08] MEDS ORDERED: KETOROLAC TROMETHAMINE INJ 30 MG/ML VIAL IM ONE (20:55)
--- NOTE | 2017-05-08 21:19 | ED.PDOC ---
History of Present Illness - General Chief Complaint: Upper Extremity Injury Stated Complaint: left hand discoloration Time Seen by Provider: 05/08/17 20:24 Source: patient Exam Limitations: no limitations - History of Present Illness Initial Comments: The patient is a 61-year-old female presenting to the emergency roomwith several complaints today , none of which appear to be entirely new. the patient is reporting chronic right shoulder pain. She is reporting some dark discoloration to the ulnar aspect of her left hand. She is reporting some mild persistent nausea that has been ongoing for last 6 or 7 months. Additionally the patient does appear mildly inebriated already. She is quite jovial. The right shoulder has been causing her worsening pain over the last 3 or 4 months. She had a mastectomy about 7 months ago and has had slight worsening pain ever since then. She does have obvious right before meals arthritis which may be contributing. She also may be having some scarring from her surgery worsening the pain. She does take some pain pills already. She does not really have much edema in the right upper extremity. The patient reports intermittent nausea but takes anti-inflammatories regularly without any stomach protective medication. She does have some nausea medication at home that she uses when she gets chemotherapy. The nausea is not really gotten any worse but she just wanted to mention it. The discoloration to the ulnar aspect of her left hand appears to be a bruise that has tracked down. She is not really tender to palpation in that area. There is no real deformity. She likely simply ruptured vein when she bumped something on accident. Timing/Duration: unsure Severity: mild Improving Factors: nothing Worsening Factors: movement Associated Symptoms: denies symptoms Allergies/Adverse Reactions: Allergies NO KNOWN ALLERGY Allergy (Unverified 07/05/14 21:24) Home Medications: Ambulatory Orders Tramadol HCl [Ultram] 50 mg PO Q6H #20 tab 07/21/14 Bioflavonoid Products [Bioflex] 1 tab PO PRN PRN 09/09/16 Citalopram Hydrobromide [CeleXA] 20 mg PO DAILY 09/09/16 Coenzyme Q10 (Ubidecarenone) [Co Q-10] 150 mg PO DAILY 09/09/16 Guarana (Paullinia Cupana) [Guarana] 1,000 mg PO PRN PRN 09/09/16 Ibuprofen [Advil] 600 mg PO DAILY@0700 08/04/17 Potassium 75 mg PO PRN PRN 09/09/16 Pravastatin Sodium [Pravachol] 40 mg PO DAILY@69909/09/16 Triamterene & Hydrochlorothiaz [Triamterene/Hydrochloroth] 1 cap PO DAILY@69909/09/16 HYDROcodone 5MG/APAP 325MG [Sublimity 5/325] 1 - 2 ea PO Q4H PRN #40 09/14/16 Nicotine Patch 21 mg [Habitrol Patch 21mg] 1 ea TD BEDTIME 09/14/16 Potassium Chloride Tab [Micro-K] 20 meq PO TIDFD 09/14/16 levoFLOXacin [Levaquin] 500 mg PO QD #7 tab 11/16/16 Ondansetron [Zofran Odt] 4 mg PO Q4H PRN #10 tab 05/08/17 Review of Systems - Review of Systems Constitutional: States: no symptoms reported EENTM: States: no symptoms reported Respiratory: States: no symptoms reported Cardiology: States: no symptoms reported Gastrointestinal/Abdominal: States: nausea Genitourinary: States: no symptoms reported Musculoskeletal: States: see HPI Skin: States: see HPI Neurological: States: no symptoms reported Endocrine: States: no symptoms reported All other Systems: No Change from Baseline Past Medical History (General) - Patient Medical History Hx Seizures: No Hx Stroke: No Hx Dementia: No Hx Asthma: No Hx of COPD: No Hx Cardiac Disorders: No Hx Congestive Heart Failure: No Hx Pacemaker: No Hx Hypertension: No Hx Thyroid Disease: No Hx Diabetes: No Hx Renal Disease: No Hx Cancer: Yes - breast Hx of HIV: No Hx MRSA: No Surgical History: Hysterectomy - Vaccination History Hx Tetanus, Diphtheria Vaccination: No - over 5 years Hx Influenza Vaccination: Yes - Social History Hx Tobacco Use: Yes Hx Alcohol Use: Yes - Female History Patient is a Female of Child Bearing Age (10 -59 yrs old): No Patient : No Family Medical History - Family History Mother Family History: Unknown Hx Family Cancer: Yes - breast multiple family members Physical Exam - Physical Exam General Appearance: Alert, Comfortable, No apparent distress Eye Exam: bilateral normal - pupils pupils are mildly constricted bilaterally. Ears, Nose, Throat: hearing grossly normal, normal ENT inspection, normal pharynx Neck: full range of motion, supple Respiratory: lungs clear, normal breath sounds, no respiratory distress, no accessory muscle use, other - right mastectomy scar has healed nicely. Minimal discomfort to palpation of the right axilla. Minimal edema of the right upper extremity. Cardiovascular/Chest: normal peripheral pulses, regular rate, rhythm, no edema Peripheral Pulses: radial,right: 2+, radial,left: 2+, dorsalis pedis,right: 2+, dorsalis pedis,left: 2+ Gastrointestinal/Abdominal: non tender, soft Rectal Exam: deferred Back Exam: normal inspection, no CVA tenderness, no vertebral tenderness Extremity: normal range of motion, no pedal edema, no calf tenderness, normal capillary refill, other - she does have soome before meals joint tenderness to palpation. Neurologic: press set up person II-XII nml as tested, alert, normal mood/affect - she is anxious , oriented x 3 Skin Exam: normal color - with the exception of the bruising to her ulnar aspect of her left hand as well as some finger discoloration from one of her hobbies. Comments: Vital Signs - 24 hr 05/08/17 20:49 Temperature 98.4 F Pulse Rate [ 78 Right] Respiratory 18 Rate Blood Pressure 145/83 [Left Arm] O2 Sat by Pulse 99 Oximetry Progress - Progress Progress: 05/08/17 21:22 the patient is a 61-year-old female presenting to the emergency room secondary to several issues. First the patient does have mild bruising to the ulnar aspect of the left hand. This should resolve over the next 1-2 weeks without any further intervention. The patient also has some right shoulder pain that is likely multifactorial from right acromioclavicular joint arthritis as well as likely from some scarring from her previous surgery. The patient is going to be placed on prednisone 20 mg daily for 5 days for the right acromioclavicular joint. She also may need to see physical therapy to start doing some exercises to reduce pain from the surgery and stretch out the scar tissue. The patient is currently written for Zofran for as needed use for nausea and vomiting and she should also diamond picker a stomach medication of her choice to take on a daily basis as she is taking anti-inflammatories. This may help with the nausea. She needs to keep herself well-hydrated. She needs to follow up with her primary care doctor towards the end of the week. ER warnings were given for any worsening. Departure - Departure Clinical Impression: Nausea Contusion, hand Qualifiers: Encounter type: initial encounter Laterality: left Qualified Code(s): S60.222A - Contusion of left hand, initial encounter Acromioclavicular arthrosis Qualifiers: Laterality: right Qualified Code(s): M19.011 - Primary osteoarthritis, right shoulder Disposition: Discharge to Home or Self Care Condition: Fair Departure Forms: ED Discharge - Pt. Copy, Patient Portal Self Enrollment Diet: regular diet Activity: increase activity as tolerated Referrals: Aneesh Nieves MD [Primary Care Provider] - 1-5 Days Prescriptions: Ondansetron [Zofran Odt] 4 mg PO Q4H PRN #10 tab PRN Reason: Vomiting Home Medications: Ambulatory Orders Tramadol HCl [Ultram] 50 mg PO Q6H #20 tab 07/21/14 Bioflavonoid Products [Bioflex] 1 tab PO PRN PRN 09/09/16 Citalopram Hydrobromide [CeleXA] 20 mg PO DAILY 09/09/16 Coenzyme Q10 (Ubidecarenone) [Co Q-10] 150 mg PO DAILY 09/09/16 Guarana (Paullinia Cupana) [Guarana] 1,000 mg PO PRN PRN 09/09/16 Ibuprofen [Advil] 600 mg PO DAILY@69909/09/16 Potassium 75 mg PO PRN PRN 09/09/16 Pravastatin Sodium [Pravachol] 40 mg PO DAILY@69909/09/16 Triamterene & Hydrochlorothiaz [Triamterene/Hydrochloroth] 1 cap PO DAILY@69909/09/16 HYDROcodone 5MG/APAP 325MG [Sublimity 5/325] 1 - 2 ea PO Q4H PRN #40 09/14/16 Nicotine Patch 21 mg [Habitrol Patch 21mg] 1 ea TD BEDTIME 09/14/16 Potassium Chloride Tab [Micro-K] 20 meq PO TIDFD 09/14/16 levoFLOXacin [Levaquin] 500 mg PO QD #7 tab 11/16/16 Ondansetron [Zofran Odt] 4 mg PO Q4H PRN #10 tab 05/08/17 Additional Instructions: the patient is a 61-year-old female presenting to the emergency room secondary to several issues. First the patient does have mild bruising to the ulnar aspect of the left hand. This should resolve over the next 1-2 weeks without any further intervention. The patient also has some right shoulder pain that is likely multifactorial from right acromioclavicular joint arthritis as well as likely from some scarring from her previous surgery. The patient is going to be placed on prednisone 20 mg daily for 5 days for the right acromioclavicular joint. She also may need to see physical therapy to start doing some exercises to reduce pain from the surgery and stretch out the scar tissue. The patient is currently written for Zofran for as needed use for nausea and vomiting and she should also diamond picker a stomach medication of her choice to take on a daily basis as she is taking anti-inflammatories. This may help with the nausea. She needs to keep herself well-hydrated. She needs to follow up with her primary care doctor towards the end of the week. ER warnings were given for any worsening.
[2017-05-08 21:34] VITALS: BP 138/81; TEMP 97.9
== END 2017-05-08 21:34 | disposition home or self-care (01) ==
LOC: ER 20:23
DX: S60.222A Contusion of left hand, initial encounter (principal); M19.011 Primary osteoarthritis, right shoulder; R11.0 Nausea; G89.29 Other chronic pain; C50.919 Malignant neoplasm of unspecified site of unspecified female breast; F17.200 Nicotine dependence, unspecified, uncomplicated; Z90.10 Acquired absence of unspecified breast and nipple; Z79.899 Other long term (current) drug therapy; X58.XXXA Exposure to other specified factors, initial encounter; Y92.9 Unspecified place or not applicable

== ENCOUNTER 2017-07-01 19:05 | Emergency (ER) | payer BC ==
[2017-07-01] MEDS ORDERED: CHLORHEXIDINE GLUCONATE 4 % 15 ML UD TOP ONE (19:14)
--- NOTE | 2017-07-01 19:14 | ED.PDOC ---
History of Present Illness - General Chief Complaint: Skin/Abrasion/Tear Stated Complaint: laceration little finger left Time Seen by Provider: 07/01/17 19:13 Source: patient Exam Limitations: no limitations - History of Present Illness Initial Comments: Telma Hernandez 61 y/o female stated that she was cutting onions with knife then accidentally struck left little finger and noted bleeding afterwards. Timing/Duration: just prior to arrival Severity: mild Location: hands - left 5th digit Improving Factors: nothing Worsening Factors: movement Associated Symptoms: denies symptoms Allergies/Adverse Reactions: Allergies NO KNOWN ALLERGY Allergy (Unverified 07/05/14 21:24) Home Medications: Ambulatory Orders Tramadol HCl [Ultram] 50 mg PO Q6H #20 tab 07/21/14 Bioflavonoid Products [Bioflex] 1 tab PO PRN PRN 09/09/16 Citalopram Hydrobromide [CeleXA] 20 mg PO DAILY 09/09/16 Coenzyme Q10 (Ubidecarenone) [Co Q-10] 150 mg PO DAILY 09/09/16 Guarana (Paullinia Cupana) [Guarana] 1,000 mg PO PRN PRN 09/09/16 Ibuprofen [Advil] 600 mg PO DAILY@0709/09/16 Potassium 75 mg PO PRN PRN 09/09/16 Pravastatin Sodium [Pravachol] 40 mg PO DAILY@0709/09/16 Triamterene & Hydrochlorothiaz [Triamterene/Hydrochloroth] 1 cap PO DAILY@69909/09/16 HYDROcodone 5MG/APAP 325MG [[place] 5/325] 1 - 2 ea PO Q4H PRN #40 09/14/16 Nicotine Patch 21 mg [Habitrol Patch 21mg] 1 ea TD BEDTIME 09/14/16 Potassium Chloride Tab [Micro-K] 20 meq PO TIDFD 09/14/16 levoFLOXacin [Levaquin] 500 mg PO QD #7 tab 11/16/16 Ondansetron [Zofran Odt] 4 mg PO Q4H PRN #10 tab 05/08/17 Clobetasol Propionate 0.05 % EX BID 10 Days #1 tube 07/01/17 hydrOXYzine HCl [Atarax] 25 mg PO TID PRN #30 tab 07/01/17 Review of Systems - Review of Systems Constitutional: States: no symptoms reported EENTM: States: no symptoms reported Skin: States: see HPI Past Medical History (General) - Patient Medical History Hx Seizures: No Hx Stroke: No Hx Dementia: No Hx Asthma: No Hx of COPD: No Hx Cardiac Disorders: No Hx Congestive Heart Failure: No Hx Pacemaker: No Hx Hypertension: No Hx Thyroid Disease: No Hx Diabetes: No Hx Renal Disease: No Hx Cancer: Yes - breast Hx of HIV: No Hx MRSA: No Surgical History: other - hysterectomy - Vaccination History Hx Tetanus, Diphtheria Vaccination: No - over 5 years Hx Influenza Vaccination: Yes - Social History Hx Tobacco Use: Yes Hx Alcohol Use: Yes Hx Physical Abuse: No Hx Emotional Abuse: No - Female History Patient : No Family Medical History - Family History Mother Family History: Unknown Hx Family Cancer: Yes - breast multiple family members Physical Exam - Physical Exam General Appearance: Alert, No apparent distress Eyes, Ears, Nose, Throat Exam: normal ENT inspection Neck: full range of motion Cardiovascular/Chest: normal peripheral pulses, regular rate, rhythm, no murmur , other - right mastectomy Respiratory: lungs clear Gastrointestinal/Abdominal: soft Back Exam: normal inspection Extremity: no pedal edema, no calf tenderness Neurologic: no motor/sensory deficits, alert, oriented x 3 Skin Exam: warm/dry, normal color Skin Problem Location: upper extremities - laceration superficial finger Skin Character: other - 1 cm superficial non gaping laceration distal 5th digit left Progress - Progress Progress: 07/01/17 19:35 Vital Signs - 8 hr 07/01/17 19:13 Temperature 98.2 F Pulse Rate [ 108 H left] Respiratory 18 Rate Blood Pressure 133/76 [left] O2 Sat by Pulse 100 Oximetry 07/01/17 19:37 Does not need stitches wound is superficial bleeding stopped Departure - Departure Clinical Impression: Minor skin laceration, Chronic dermatitis Time of Disposition: 19:39 Disposition: Discharge to Home or Self Care Condition: Good Departure Forms: ED Discharge - Pt. Copy, Patient Portal Self Enrollment Instructions: DI for Minor Laceration, Minor Wounds (Alternative Therapy) Referrals: Aneesh Nieves MD [Primary Care Provider] - 1-2 Weeks Prescriptions: Clobetasol Propionate 0.05 % EX BID 10 Days #1 tube hydrOXYzine HCl [Atarax] 25 mg PO TID PRN #30 tab PRN Reason: Allergies Home Medications: Ambulatory Orders Tramadol HCl [Ultram] 50 mg PO Q6H #20 tab 07/21/14 Bioflavonoid Products [Bioflex] 1 tab PO PRN PRN 09/09/16 Citalopram Hydrobromide [CeleXA] 20 mg PO DAILY 09/09/16 Coenzyme Q10 (Ubidecarenone) [Co Q-10] 150 mg PO DAILY 09/09/16 Guarana (Paullinia Cupana) [Guarana] 1,000 mg PO PRN PRN 09/09/16 Ibuprofen [Advil] 600 mg PO DAILY@69909/09/16 Potassium 75 mg PO PRN PRN 09/09/16 Pravastatin Sodium [Pravachol] 40 mg PO DAILY@69909/09/16 Triamterene & Hydrochlorothiaz [Triamterene/Hydrochloroth] 1 cap PO DAILY@69909/09/16 HYDROcodone 5MG/APAP 325MG [[place] 5/325] 1 - 2 ea PO Q4H PRN #40 09/14/16 Nicotine Patch 21 mg [Habitrol Patch 21mg] 1 ea TD BEDTIME 09/14/16 Potassium Chloride Tab [Micro-K] 20 meq PO TIDFD 09/14/16 levoFLOXacin [Levaquin] 500 mg PO QD #7 tab 11/16/16 Ondansetron [Zofran Odt] 4 mg PO Q4H PRN #10 tab 05/08/17 Clobetasol Propionate 0.05 % EX BID 10 Days #1 tube 07/01/17 hydrOXYzine HCl [Atarax] 25 mg PO TID PRN #30 tab 07/01/17 Additional Instructions: Leave dressing for 5 days if not get wet or dirty,keep area dry;return to ER as needed
[2017-07-01 19:33] VITALS: BP 133/76; O2SAT 100
[2017-07-01] MEDS ORDERED: hydrOXYzine HCl 25 MG TAB PO ONE (19:35)
[2017-07-01] MEDS ORDERED: diphenhydrAMINE HCL 50 MG/ML VIAL IM ONE (19:35)
[2017-07-01] MEDS ORDERED: TETANUS,DIPHTHERIA,PERTUSSIS 1 EA SYG IM ONE (19:35)
[2017-07-01 19:57] VITALS: TEMP 98.8
== END 2017-07-01 19:57 | disposition home or self-care (01) ==
LOC: ER 19:05
DX: S61.217A Laceration without foreign body of left little finger without damage to nail, initial encounter (principal); L30.9 Dermatitis, unspecified; Z23 Encounter for immunization; Z85.3 Personal history of malignant neoplasm of breast; Z87.891 Personal history of nicotine dependence; W26.0XXA Contact with knife, initial encounter; Y93.61 Activity, american tackle football; Y92.9 Unspecified place or not applicable
CPT/HCPCS: 90471; 90715; J1200

== ENCOUNTER 2018-05-25 21:29 | Emergency (ER) | payer BC ==
[2018-05-25] MEDS ORDERED: predniSONE 20 MG TAB PO ONE (21:50)
--- NOTE | 2018-05-25 22:40 | ED.PDOC ---
History of Present Illness - General Chief Complaint: Lower Extremity Injury Time Seen by Provider: 05/25/18 21:37 Source: patient Exam Limitations: no limitations - History of Present Illness Initial Comments: the patient is a 62-year-old female presenting to the emergency room secondary to left knee and to a lesser extent left hip pain for the last couple of months. The pain is worst in the knee and worse in the medial knee. No significant posterior pain. No palpable cords. There is diffuse swelling around the knee but no increased warmth or erythema. No crepitus. She has tenderness to palpation over the medial collateral ligament and with stressing of the ligament. No evidence of ACL or PCL injury is obvious. She is ambulatory. She has mild tenderness to palpation over the left hip but normal range of motion. She is neurovascularly intact. She is very impatient. Method of Injury: unknown Improving Factors: nothing Worsening Factors: movement Allergies/Adverse Reactions: Allergies NO KNOWN ALLERGY Allergy (Unverified 07/05/14 21:24) Home Medications: Ambulatory Orders Tramadol HCl [Ultram] 50 mg PO Q6H #20 tab 07/21/14 Bioflavonoid Products [Bioflex] 1 tab PO PRN PRN 09/09/16 Citalopram Hydrobromide [CeleXA] 20 mg PO DAILY 09/09/16 Coenzyme Q10 (Ubidecarenone) [Co Q-10] 150 mg PO DAILY 09/09/16 Guarana (Paullinia Cupana) [Guarana] 1,000 mg PO PRN PRN 09/09/16 Ibuprofen [Advil] 600 mg PO DAILY@69909/09/16 Potassium 75 mg PO PRN PRN 09/09/16 Pravastatin Sodium [Pravachol] 40 mg PO DAILY@69909/09/16 Triamterene & Hydrochlorothiaz [Triamterene/Hydrochloroth] 1 cap PO DAILY@69909/09/16 HYDROcodone 5MG/APAP 325MG [[place] 5/325] 1 - 2 ea PO Q4H PRN #40 09/14/16 Nicotine Patch 21 mg [Habitrol Patch 21mg] 1 ea TD BEDTIME 09/14/16 Potassium Chloride Tab [Micro-K] 20 meq PO TIDFD 09/14/16 levoFLOXacin [Levaquin] 500 mg PO QD #7 tab 11/16/16 Ondansetron [Zofran Odt] 4 mg PO Q4H PRN #10 tab 05/08/17 Clobetasol Propionate 0.05 % EX BID 10 Days #1 tube 07/01/17 hydrOXYzine HCl [Atarax] 25 mg PO TID PRN #30 tab 07/01/17 Review of Systems - Review of Systems Constitutional: States: no symptoms reported EENTM: States: no symptoms reported Respiratory: States: no symptoms reported Cardiology: States: no symptoms reported Gastrointestinal/Abdominal: States: no symptoms reported Genitourinary: States: no symptoms reported Musculoskeletal: States: see HPI Skin: States: no symptoms reported Neurological: States: no symptoms reported All other Systems: No Change from Baseline Past Medical History (General) - Patient Medical History Hx Seizures: No Hx Stroke: No Hx Dementia: No Hx Asthma: No Hx of COPD: No Hx Cardiac Disorders: No Hx Congestive Heart Failure: No Hx Pacemaker: No Hx Hypertension: No Hx Thyroid Disease: No Hx Diabetes: No Hx Renal Disease: No Hx Cancer: Yes - breast Hx of HIV: No Hx MRSA: No - Vaccination History Hx Tetanus, Diphtheria Vaccination: No - over 5 years Hx Influenza Vaccination: Yes Hx Pneumococcal Vaccination: Yes - Social History Hx Tobacco Use: Yes Hx Alcohol Use: Yes Hx Physical Abuse: No Hx Emotional Abuse: No - Female History Patient : No Family Medical History - Family History Mother Family History: Unknown Hx Family Cancer: Yes - breast multiple family members Physical Exam - Physical Exam General Appearance: Alert, Anxious, No apparent distress Eyes, Ears, Nose, Throat: PERRL/EOMI Neck: supple Cardiovascular/Respiratory: normal peripheral pulses, no respiratory distress Gastrointestinal/Abdominal: non-tender Back: no CVA tenderness, no vertebral tenderness Thigh/Hip: other - see history of present illness. Leg: other - see history of present illness. Ankle: normal inspection, non-tender, no evidence of injury, normal ROM Foot: normal inspection, non-tender, no evidence of injury, normal ROM Neuro/Tendon: normal sensation, normal motor functions, normal tendon functions Mental Status: alert, oriented x 3, other - anxious and mildly agitated Skin: normal color Progress - Progress Progress: 05/25/18 22:41 the patient is a 62-year-old female presenting with extended symptoms of left knee pain and to a lesser extent left proximal thigh pain. X-ray of the left knee shows no evidence of any overt fracture or dislocation. She does have some minimal medial compartment narrowing. She does have tenderness to palpation over the left medial collateral ligament. She likely has a MCL strain. The patient left before we could get final reads back on the x-rays and advise her AGAINST MEDICAL ADVICE. Departure - Departure Clinical Impression: Medial collateral ligament sprain of knee Qualifiers: Encounter type: initial encounter Laterality: left Qualified Code(s): S83.412A - Sprain of medial collateral ligament of left knee, initial encounter Disposition: Left Against Medical Advice Condition: Fair Departure Forms: ED Discharge - Pt. Copy, Patient Portal Self Enrollment Instructions: DI for Knee Pain Referrals: Aneesh Nieevs MD [Primary Care Provider] - 1-2 Weeks Home Medications: Ambulatory Orders Tramadol HCl [Ultram] 50 mg PO Q6H #20 tab 07/21/14 Bioflavonoid Products [Bioflex] 1 tab PO PRN PRN 09/09/16 Citalopram Hydrobromide [CeleXA] 20 mg PO DAILY 09/09/16 Coenzyme Q10 (Ubidecarenone) [Co Q-10] 150 mg PO DAILY 09/09/16 Guarana (Paullinia Cupana) [Guarana] 1,000 mg PO PRN PRN 09/09/16 Ibuprofen [Advil] 600 mg PO DAILY@69909/09/16 Potassium 75 mg PO PRN PRN 09/09/16 Pravastatin Sodium [Pravachol] 40 mg PO DAILY@69909/09/16 Triamterene & Hydrochlorothiaz [Triamterene/Hydrochloroth] 1 cap PO DAILY@69909/09/16 HYDROcodone 5MG/APAP 325MG [[place] 5/325] 1 - 2 ea PO Q4H PRN #40 09/14/16 Nicotine Patch 21 mg [Habitrol Patch 21mg] 1 ea TD BEDTIME 09/14/16 Potassium Chloride Tab [Micro-K] 20 meq PO TIDFD 09/14/16 levoFLOXacin [Levaquin] 500 mg PO QD #7 tab 11/16/16 Ondansetron [Zofran Odt] 4 mg PO Q4H PRN #10 tab 05/08/17 Clobetasol Propionate 0.05 % EX BID 10 Days #1 tube 07/01/17 hydrOXYzine HCl [Atarax] 25 mg PO TID PRN #30 tab 07/01/17 Additional Instructions: the patient is a 62-year-old female presenting with extended symptoms of left knee pain and to a lesser extent left proximal thigh pain. X-ray of the left knee shows no evidence of any overt fracture or dislocation. She does have some minimal medial compartment narrowing. She does have tenderness to palpation over the left medial collateral ligament. She likely has a MCL strain. The patient left before we could get final reads back on the x-rays and advise her AGAINST MEDICAL ADVICE.
[2018-05-26 00:12] VITALS: BP 123/84; TEMP 98.4; O2SAT 95
== END 2018-05-25 22:37 | disposition left against medical advice (07) ==
LOC: ER 21:29
DX: S83.412A Sprain of medial collateral ligament of left knee, initial encounter (principal); M25.552 Pain in left hip; Z53.29 Procedure and treatment not carried out because of patient's decision for other reasons; Z79.899 Other long term (current) drug therapy; Z85.3 Personal history of malignant neoplasm of breast; Z87.891 Personal history of nicotine dependence; X58.XXXA Exposure to other specified factors, initial encounter; Y92.9 Unspecified place or not applicable
CPT/HCPCS: 73502; 73560; J7512

== ENCOUNTER 2018-10-23 18:49 | Emergency (ER) | payer BC ==
[2018-10-23] MEDS ORDERED: SODIUM CHLORIDE 0.9% 1000ML 1,000 ML IVS ONE (19:31)
[2018-10-23] MEDS ORDERED: ONDANSETRON INJ 4 MG/2 ML VIAL IV ONE (19:31)
[2018-10-23] MEDS ORDERED: ACETAMINOPHEN 500 MG TAB PO ONE (19:31)
--- NOTE | 2018-10-23 19:42 | ED.PDOC ---
History of Present Illness - General Chief Complaint: Headache Stated Complaint: headache, fever Time Seen by Provider: 10/23/18 19:22 - History of Present Illness Initial Comments: 63 yo F PMH Breast Cancer with R mastectomy presents to ED c/o fever headache (worse heache of the course of illness was Monday so headache today still present but not as bad as Monday) also c/o chills nausea but no vomiting diarrhea chest pain sob admits sweating to back of head also admits rest and appetite disturbed no change in bowel or bladder. Admits smoking and drinking has PMD for follow up is on '5 year chemo pill' admits FH HTN DM no other c/o today. Allergies/Adverse Reactions: Allergies NO KNOWN ALLERGY Allergy (Unverified 07/05/14 21:24) Home Medications: Ambulatory Orders Citalopram Hydrobromide [CeleXA] 20 mg PO DAILY 09/09/16 Ibuprofen [Advil] 600 mg PO DAILY@00 09/09/16 Pravastatin Sodium [Pravachol] 40 mg PO DAILY@69909/09/16 Triamterene & Hydrochlorothiaz [Triamterene/Hydrochloroth] 1 cap PO DAILY@69909/09/16 Acetaminophen [Tylenol] 650 mg PO Q6H PRN #30 tab 10/24/18 Cefuroxime Axetil [Ceftin] 500 mg PO Q12H #20 tablet 10/24/18 Ibuprofen 600 mg PO Q6H PRN #20 tab 10/24/18 Review of Systems - Review of Systems Constitutional: States: chills, fever, malaise EENTM: States: no symptoms reported Respiratory: States: cough Cardiology: States: no symptoms reported Gastrointestinal/Abdominal: States: nausea Genitourinary: States: no symptoms reported Musculoskeletal: States: muscle pain Skin: States: rash, other - chronic rah x months Neurological: States: no symptoms reported All other Systems: Reviewed and Negative Past Medical History (General) - Patient Medical History Hx Seizures: No Hx Stroke: No Hx Dementia: No Hx Asthma: No Hx of COPD: No Hx Cardiac Disorders: No Hx Congestive Heart Failure: No Hx Pacemaker: No Hx Hypertension: No Hx Thyroid Disease: No Hx Diabetes: No Hx Gastroesophageal Reflux: No Hx Renal Disease: No Hx Cancer: Yes - breast Hx of HIV: No Hx Hepatitis C: No Hx MRSA: No - Vaccination History Hx Tetanus, Diphtheria Vaccination: No - over 5 years Hx Influenza Vaccination: Yes Hx Pneumococcal Vaccination: Yes - Social History Hx Tobacco Use: Yes Hx Chewing Tobacco Use: No Hx Alcohol Use: Yes Hx Substance Use: No Hx Substance Use Treatment: No Hx Depression: No Hx Physical Abuse: No Hx Emotional Abuse: No Hx Suspected Abuse: No - Female History Patient : No Family Medical History - Family History Mother Family History: Unknown Hx Family Cancer: Yes - breast multiple family members Physical Exam - Physical Exam General Appearance: Ill Appearing Eyes, Ears, Nose, Throat Exam: normal ENT inspection Neck: other - no neck pain no meningismus Cardiovascular/Chest: regular rate, rhythm Respiratory: wheezing Gastrointestinal/Abdominal: soft, tenderness, other - tender RLQ LLQ 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 Exam: normal speech, PERRL Motor/Sensory: no motor deficit, no sensory deficit Skin Exam: warm/dry, other - rash to thighs and belly round crusted over no obvious vasculitis cellulitis or vesicles all in same stage of healing bilateral not following dermatome Progress - Progress Progress: 10/23/18 19:48 A/P-Fever, Headache, Malaise, Abdominal Pain 1.iv bolus tylenol urinalysis telemetry monitor cbc cmp trop rapid strep flu ct head ct abdomen pelvis ekg cxr reassess lactate 10/23/18 19:54 Spoke to pt about how meningitis is in the differential diagnosis, pt states 'I do not like needles' and declines spinal tap at this time, will add dexamethasone duonebs and rocephin to treatment regimen 10/23/18 21:02 Daughter also at bedside now 10/24/18 00:35 On reassessment pt headache free and feeling much improved, final diagnosis Pyelonephritis, Hypokalemia, Dehydration Admit Observation got rocephin EKG-Non specific TW changes No STEMI NSR 96bpm Pt. would not like to be admitted will d/c home at this time tylenol cefuroxime follow up pcp referral Departure - Departure Clinical Impression: Hypokalemia, Dehydration, Pyelonephritis Headache Qualifiers: Headache type: unspecified Headache chronicity pattern: unspecified pattern Intractability: not intractable Qualified Code(s): R51 - Headache Time of Disposition: 00:52 Disposition: Discharge to Home or Self Care Condition: Fair Departure Forms: ED Discharge - Pt. Copy, Patient Portal Self Enrollment Instructions: DI for Headache, Urinary Tract Infection, Adult (DC), Dehydration, Adult (DC), Headache, Adult (DC), Hypokalemia (DC) Referrals: Aneesh Nieves MD [Primary Care Provider] - 1-2 Days Prescriptions: Acetaminophen [Tylenol] 650 mg PO Q6H PRN #30 tab PRN Reason: Pain Cefuroxime Axetil [Ceftin] 500 mg PO Q12H #20 tablet Ibuprofen 600 mg PO Q6H PRN #20 tab PRN Reason: Pain Home Medications: Ambulatory Orders Citalopram Hydrobromide [CeleXA] 20 mg PO DAILY 09/09/16 Ibuprofen [Advil] 600 mg PO DAILY@69909/09/16 Pravastatin Sodium [Pravachol] 40 mg PO DAILY@69909/09/16 Triamterene & Hydrochlorothiaz [Triamterene/Hydrochloroth] 1 cap PO DAILY@69909/09/16 Acetaminophen [Tylenol] 650 mg PO Q6H PRN #30 tab 10/24/18 Cefuroxime Axetil [Ceftin] 500 mg PO Q12H #20 tablet 10/24/18 Ibuprofen 600 mg PO Q6H PRN #20 tab 10/24/18
[2018-10-23] MEDS ORDERED: cefTRIAXone SODIUM 2 GM in SODIUM CHL 0.9% 100ML MINI-BAG 100 ML IVPB ONE (19:51)
[2018-10-23] MEDS ORDERED: DEXAMETHASONE INJ 10 MG/ML VIAL IV ONE (19:51)
[2018-10-23] MEDS ORDERED: IPRATROPIUM/ALBUTEROL 3 ML VIAL NEB ONE (19:54)
--- NOTE | 2018-10-23 20:12 | RAD ---
EXAM: XR Chest, 1 View CLINICAL HISTORY: cough TECHNIQUE: Frontal view of the chest. COMPARISON: 11/16/2016. FINDINGS: Limitations: None. Lungs: Unremarkable. No consolidation. Pleural space: Unremarkable. No pneumothorax. Heart: Unremarkable. No cardiomegaly. Mediastinum: Unremarkable. Bones/joints: Unremarkable. Tubes, lines and devices: Central venous port has been removed. IMPRESSION: No acute findings. Electronically signed by: Madelyn Chambers MD 10/23/2018 8:11 PM CDT
[2018-10-23] MEDS ORDERED: SODIUM CHL 0.9% 100ML MINI-BAG 100 ML IVPB ONE (20:43)
--- NOTE | 2018-10-23 21:09 | CT ---
EXAM DESCRIPTION: Head CLINICAL HISTORY: 63 years Female headache r/o metastatic disease COMPARISON: None TECHNIQUE: Images were obtained in axial, sagittal, and coronal planes. This exam was performed according to our departmental dose-optimization program which includes use of Automated Exposure Control, adjustment of the mA and/or kV according to patient size and/or use of iterative reconstruction technique. FINDINGS: Ventricular system appears normal. No abnormal areas of increased or decreased attenuation are seen involving the brain parenchyma. Prominent extra-axial cerebral spinal fluid spaces anteriorly. No evidence for skull fracture. Symmetric aeration mastoid air cells bilaterally. Unremarkable paranasal sinuses. IMPRESSION: No acute intracranial abnormality. No evidence for hemorrhage, mass lesion, or large acute infarction. No CT evidence for metastatic disease. Consider correlation with magnetic resonance study of the brain if clinical suspicion for metastatic disease persists. Age-appropriate changes. Electronically signed by: Leanna Gasca MD 10/23/2018 9:08 PM CDT
--- NOTE | 2018-10-23 21:11 | CT ---
EXAM: Abdomen w/Contrast CLINICAL INDICATION: 63-year-old female with abdominal pain. COMPARISON: 03/14/2017. EXAMINATION: CT of the abdomen was performed following intravenous administration of contrast. Oral contrast was not administered. Multiplanar reformatted images were provided. This exam was performed according to our departmental dose optimization program which includes use of automated exposure control, adjustment of the mA and/or kV according to patient size and/or use of iterative reconstruction technique. FINDINGS: Chest: Evaluation through the lung bases reveals no focal opacity, pleural effusion or pneumothorax. Heart size is within normal limits. No pericardial effusion. Abdomen: Mild perinephric enhancement appears to be slightly increased in comparison to examination dated 03/14/2017. Additionally, there appears to be mild enhancement of the ureteral wall raising the possibility of ureteritis and infectious process. Punctate foci of calcification within the bilateral renal pelvis without hydronephrosis or hydroureter compatible with nonobstructing calculi. The liver, gallbladder, pancreas, spleen, and bilateral adrenal glands are within normal limits. The vessels reveal atherosclerotic calcification otherwise patent and normal in caliber. No abdominopelvic lymph nodes are noted to be pathologically enlarged by CT measurement criteria. The bowel is within normal limits without abnormal bowel wall thickness or bowel dilation. Diverticular disease without findings to suggest diverticulitis. No free air. No free abdominopelvic fluid collections. The appendix is not included in the [id number] of the examination. The osseous structures are within normal limits. IMPRESSION: 1. No specific acute intra-abdominal findings are noted to suggest etiology of the patient's abdominal pain. 2. Perinephric stranding with ureteral enhancement raising the concern for infectious process. Please correlate with laboratory values. 3. Punctate bilateral nonobstructing calculi. 4. Diverticular disease without findings to suggest diverticulitis. Electronically signed by: Christianne Chow MD 10/23/2018 9:10 PM CDT
--- NOTE | 2018-10-23 22:36 | CT ---
EXAM DESCRIPTION: Pelvis CLINICAL HISTORY: 63 years Female pain,nausea COMPARISON: None. TECHNIQUE: Contiguous axial CT images obtained through the pelvis without IV contrast. Reformatted images obtained. This exam was performed according to our department optimization program which includes automated exposure control, adjustment of the mA and/or kv according to patient size and/or use of iterative reconstruction technique. All CT scanners at this facility use dose modulation, iterative reconstruction, and/or weight based dosing when appropriate to reduce radiation dose to as low as reasonably achievable (ALARA). FINDINGS: There is colonic diverticulosis without evidence of diverticulitis. Urinary bladder is underdistended but the bladder wall appears thickened. Correlation for cystitis may be helpful. There is residual contrast in the urinary bladder. Nonobstructive right renal stone is partially imaged and measures at least 3 mm. Left kidney is not seen but only the pelvis and lower abdomen are not imaged. There is trace fluid in the pelvis. No evidence of ureteral obstruction on the right side. No other acute abnormality. No fracture or dislocation. IMPRESSION: Cystitis is not excluded, but apparent thickening of the urinary bladder wall could be related to underdistention instead. No other clear etiology for acute pain identified. Electronically signed by: German Seaman 10/23/2018 10:34 PM CDT
[2018-10-24 00:03] VITALS: O2SAT 99
[2018-10-24] MEDS ORDERED: POTASSIUM CHLORIDE 20 MEQ TAB PO ONE (00:09)
[2018-10-24 01:38] VITALS: BP 109/71; TEMP 98.4
== END 2018-10-24 01:38 | disposition home or self-care (01) ==
LOC: ER 18:49
DX: N12 Tubulo-interstitial nephritis, not specified as acute or chronic (principal); R51 Headache; E86.0 Dehydration; E87.6 Hypokalemia; R10.30 Lower abdominal pain, unspecified; R21 Rash and other nonspecific skin eruption; R06.2 Wheezing; F17.200 Nicotine dependence, unspecified, uncomplicated; Z85.3 Personal history of malignant neoplasm of breast; Z79.899 Other long term (current) drug therapy; Z92.21 Personal history of antineoplastic chemotherapy
CPT/HCPCS: 36415; 70450; 71045; 72192; 74160; 80048; 80076; 81001; 82550; 82553; 83605; 84484; 85025; 85610; 85730; 87070; 87502; 87880; 93005; 94640; J0696; J1100; J2405; J7030; J7050; J7620

== ENCOUNTER 2019-05-04 18:22 | Emergency (ER) | payer BC ==
[2019-05-04] MEDS ORDERED: cefTRIAXone SODIUM 2 GM in SODIUM CHL 0.9% 100ML MINI-BAG 100 ML IVPB ONE (18:30)
[2019-05-04] MEDS ORDERED: SODIUM CHLORIDE 0.9% 1000ML 1,000 ML IVS ONE (18:30)
[2019-05-04] MEDS ORDERED: SODIUM CHLORIDE 0.9% (FLUSH) 10 ML SYG IV PRN (18:30)
[2019-05-04 18:41] VITALS: TEMP 98
--- NOTE | 2019-05-04 18:47 | ED.PDOC ---
History of Present Illness - General Chief Complaint: Respiratory Problem Stated Complaint: coughing Time Seen by Provider: 05/04/19 18:30 Source: patient Exam Limitations: no limitations - History of Present Illness Comments: This is a 63-year-old female remote history of breast cancer on oral chemotherapy, reportedly stage II completely resected, presenting with cough x2 days. She reports progressively worsening bloody sputum that became more severe today. She denies any chest pain, shortness of breath, fever. She denies any sick contacts. No recent travel. She denies any recent leg swelling. No blood thinners. Timing/Duration: getting worse Cough Quality/Degree: moderate, productive cough, blood streaked sputum Possible Cause: no prior episodes Improving Factors: nothing Worsening Factors: nothing Associated Symptoms: denies symptoms Respiratory Risk Factors: no cause identified Allergies/Adverse Reactions: Allergies NO KNOWN ALLERGY Allergy (Unverified 07/05/14 21:24) Home Medications: Ambulatory Orders Ibuprofen [Advil] 600 mg PO DAILY@0700 09/09/16 Ibuprofen 600 mg PO Q6H PRN #20 tab 10/24/18 Albuterol Sulfate [Albuterol Sulfate Hfa] 2 - 4 puff INH Q4H PRN #1 inhaler 05/04/19 Azithromycin 250 mg PO DAILY #4 tab 05/04/19 Benzonatate Perles [Tessalon Perles] 200 mg PO Q6H PRN #20 cap 05/04/19 Letrozole 2.5 mg PO DAILY 05/04/19 Prednisone 50 mg PO DAILY #4 tab 05/04/19 Review of Systems - Review of Systems Constitutional: Denies: chills, fever EENTM: Denies: ear pain, nose congestion, throat pain Respiratory: States: cough. Denies: short of breath, wheezing Cardiology: Denies: chest pain, edema, palpitations Gastrointestinal/Abdominal: States: diarrhea, nausea. Denies: abdominal pain, vomiting Genitourinary: Denies: discharge, hematuria, pain Musculoskeletal: Denies: joint pain, muscle pain Skin: Denies: change in color, rash Neurological: States: no symptoms reported Endocrine: States: no symptoms reported. Denies: unexplained weight gain, unexplained weight loss Hematologic/Lymphatic: States: no symptoms reported. Denies: blood clots, easy bleeding, easy bruising Past Medical History (General) - Patient Medical History Hx Seizures: No Hx Stroke: No Hx Dementia: No Hx Asthma: No Hx of COPD: No Hx Cardiac Disorders: No Hx Congestive Heart Failure: No Hx Pacemaker: No Hx Hypertension: No Hx Thyroid Disease: No Hx Diabetes: No Hx Gastroesophageal Reflux: No Hx Renal Disease: No Hx Cancer: Yes - breast Hx of HIV: No Hx Hepatitis C: No Hx MRSA: No - Vaccination History Hx Tetanus, Diphtheria Vaccination: No - over 5 years Hx Influenza Vaccination: Yes Hx Pneumococcal Vaccination: Yes - Social History Hx Tobacco Use: Yes Hx Chewing Tobacco Use: No Hx Alcohol Use: Yes Hx Substance Use: No Hx Substance Use Treatment: No Hx Depression: No Hx Physical Abuse: No Hx Emotional Abuse: No Hx Suspected Abuse: No - Female History Patient : No Family Medical History - Family History Mother Family History: Unknown Hx Family Cancer: Yes - breast multiple family members Physical Exam - Physical Exam General Appearance: Alert, Comfortable Eye Exam: bilateral normal ENT Exam: hearing grossly normal, TMs normal, pharynx normal Neck: full range of motion, supple, normal inspection Respiratory: chest non-tender, lungs clear, normal breath sounds, no respiratory distress, no accessory muscle use Cardiovascular/Chest: normal peripheral pulses, regular rate, rhythm, no edema, no gallop, no JVD Gastrointestinal/Abdominal: non tender, soft Extremity: normal range of motion, non-tender, normal inspection, no pedal edema, no calf tenderness Neurologic: no motor/sensory deficits, alert, normal mood/affect, oriented x 3 Skin Exam: normal color, warm/dry, other - No petechiae or purpura Progress - Progress Progress: 05/04/19 19:43 Rechecked. Discussed lab, x-ray results. D-dimer negative, but patient does report some mild intermittent leg swelling. Given history of breast cancer and new hemoptysis, and no other clear source, will CT chest to evaluate for subtle masses, PE, infection to further evaluate because of hemoptysis. 05/04/19 20:[address] showed no evidence of mass, PE, infiltrates. No CT findings suggestive of coronavirus. I feel coronavirus is unlikely in this patient given normal CT, lab work not suggestive of covid 19. Patient given strict warnings to avoid public places, wash hands frequently, stay home as much as possible. Recommended follow-up with PCP in 2 to 3 days for recheck. Strict warnings given to return the emergency room for worsening shortness of breath, fever, increasing hemoptysis, dizziness, syncope, or any other concerns. - Results/Orders Results/Orders: EKG interpreted by me at 1844. Normal sinus rhythm rate of 94 normal axis normal intervals poor R wave progression no ST segment elevations or depressions Chest x-ray personally reviewed by me at 7:05 PM. No infiltrates, no pneumothorax. There is a possible masslike density overlying the left lung at the level of the aortopulmonary window. This was not seen on most recent chest x-ray dated October 23, 2018. EXAM DESCRIPTION: Chest,1 View CLINICAL HISTORY: 63 years Female Cough, hemoptysis, history of breast CA COMPARISON: October 23, 2018. TECHNIQUE: AP view of the chest was obtained. FINDINGS: Cardiac size is within normal limits. Central vessels are not increased. No infiltrates or effusions seen. No consolidation. No pneumothorax. IMPRESSION: No active disease. Electronically signed by: Leanna Gasca MD 05/04/2019 7:33 PM CDT - [id number] 05/04/19 18:30 Sodium Chloride 0.9% (Flush) [Saline Flush Syringe] 10 ml IV PRN PRN EKG Stat Pulse Ox Stat 05/04/19 18:50 BLOOD CULTURE Stat 05/04/19 19:00 PROCALCITONIN Stat 05/04/19 19:37 CTA Chest [CT] Stat 05/04/19 20:30 LACTIC ACID Q2H Laboratory Results - last 24 hr 05/04/19 05/04/19 05/04/19 18:50 18:50 18:50 WBC 8.6 RBC 4.25 Hgb 11.8 L Hct 35.7 L MCV 84.1 MCH 27.9 MCHC 33.1 RDW 17.9 H Plt Count 294 MPV 8.5 Absolute Neuts (auto) 4.80 Absolute Lymphs (auto) 2.90 Absolute Monos (auto) 0.60 Absolute Eos (auto) 0.20 Absolute Basos (auto) 0.10 Neutrophils % 56.0 Lymphocytes % 33.9 Monocytes % 6.7 Eosinophils % 2.0 Basophils % 1.4 PT INR PTT (SP) D-Dimer, Quantitative Sodium 141 Potassium 3.7 Chloride 108 Carbon Dioxide 21 Anion Gap 15.7 BUN 17 Creatinine 0.65 BUN/Creatinine Ratio 26.2 H Random Glucose 108 H Serum Osmolality 283.3 Lactic Acid 2.0 Calcium 9.3 Total Bilirubin 0.4 AST 58 H ALT 70 H Alkaline Phosphatase 92 Creatine Kinase 91 CK-MB (CK-2) 1.8 CK-MB (CK-2) % Not Reportable Troponin I < 0.02 C-Reactive Protein Serum Total Protein 7.8 Albumin 4.3 Globulin 3.5 Albumin/Globulin Ratio 1.2 Urine Color Urine Appearance Urine pH Ur Specific [place] Urine Protein Urine Glucose (UA) Urine Ketones Urine Blood Urine Nitrite Urine Bilirubin Urine Urobilinogen Ur Leukocyte Esterase Urine RBC Urine WBC Ur Epithelial Cells Urine Bacteria 05/04/19 05/04/19 05/04/19 18:50 18:50 19:00 WBC RBC Hgb Hct MCV MCH MCHC RDW Plt Count MPV Absolute Neuts (auto) Absolute Lymphs (auto) Absolute Monos (auto) Absolute Eos (auto) Absolute Basos (auto) Neutrophils % Lymphocytes % Monocytes % Eosinophils % Basophils % PT 10.1 INR 1.02 PTT (SP) 23.9 D-Dimer, Quantitative < 100 L Sodium Potassium Chloride Carbon Dioxide Anion Gap BUN Creatinine BUN/Creatinine Ratio Random Glucose Serum Osmolality Lactic Acid Calcium Total Bilirubin AST ALT Alkaline Phosphatase Creatine Kinase CK-MB (CK-2) CK-MB (CK-2) % Troponin I C-Reactive Protein 0.9 Serum Total Protein Albumin Globulin Albumin/Globulin Ratio Urine Color Yellow Urine Appearance Clear Urine pH 6.0 Ur Specific [place] <= 1.005 Urine Protein Negative Urine Glucose (UA) Negative Urine Ketones Negative Urine Blood Negative Urine Nitrite Negative Urine Bilirubin Negative Urine Urobilinogen 0.2 Ur Leukocyte Esterase Trace H Urine RBC 0 Urine WBC 0-1 Ur Epithelial Cells 0 Urine Bacteria 0 PROCEDURE: CTA Chest CLINICAL HISTORY: Cough, hemoptysis TECHNIQUE: Contiguous axial images obtained through the chest during angiographic phase following the uneventful administration of IV contrast. Sagittal and coronal reformatted images were provided. MIP reformatted images were provided. This exam was performed according to our departmental dose- optimization program, which includes automated exposure control, adjustment of the mA and/or kV according to patient size and/or use of iterative reconstruction technique. COMPARISON: No prior exams provided for comparison. FINDINGS: Diagnostic quality: There is good opacification of the pulmonary arterial tree. Motion artifact degrades image quality and limits evaluation of segmental and subsegmental vessels. Lungs: No focal consolidation. Airways are patent. Pleura: No effusion. No pneumothorax. Heart and pericardium: The heart is mildly enlarged. Coronary artery calcification. No pericardial effusion. Mediastinum and lebron: No pathologically enlarged lymph nodes. Lower neck and chest wall: Prior right mastectomy. Vessels: No pulmonary arterial filling defects. Mild atherosclerotic disease. No thoracic aortic aneurysm. Upper abdomen: The liver is enlarged and diffusely low in density compatible with steatosis. Bones: Multilevel spondylosis. No acute fracture. IMPRESSION: 1. Motion artifact degrades image quality and limits evaluation of segmental and subsegmental vessels. No central pulmonary embolic disease. 2. Other findings as above. Electronically signed by: Itzel Hamilton MD 05/04/2019 8:17 PM CDT - [id number] Departure - Departure Clinical Impression: Blood-tinged sputum, History of breast cancer Acute bronchitis Qualifiers: Bronchitis organism: unspecified organism Qualified Code(s): J20.9 - Acute bronchitis, unspecified Time of Disposition: 20:23 Disposition: Discharge to Home or Self Care Condition: Fair Departure Forms: ED Discharge - Pt. Copy, Patient Portal Self Enrollment Instructions: Acute Bronchitis, Coughing up Blood Diet: resume usual diet Activity: increase activity as tolerated Referrals: Aneesh Nieves MD [Primary Care Provider] - 1-5 Days Prescriptions: Albuterol Sulfate [Albuterol Sulfate Hfa] 2 - 4 puff INH Q4H PRN #1 inhaler PRN Reason: Wheezing Azithromycin 250 mg PO DAILY #4 tab Benzonatate Perles [Tessalon Perles] 200 mg PO Q6H PRN #20 cap PRN Reason: Cough Prednisone 50 mg PO DAILY #4 tab Home Medications: Ambulatory Orders Ibuprofen [Advil] 600 mg PO DAILY@0700 09/09/16 Ibuprofen 600 mg PO Q6H PRN #20 tab 10/24/18 Albuterol Sulfate [Albuterol Sulfate Hfa] 2 - 4 puff INH Q4H PRN #1 inhaler 05/04/19 Azithromycin 250 mg PO DAILY #4 tab 05/04/19 Benzonatate Perles [Tessalon Perles] 200 mg PO Q6H PRN #20 cap 05/04/19 Letrozole 2.5 mg PO DAILY 05/04/19 Prednisone 50 mg PO DAILY #4 tab 05/04/19 Additional Instructions: Take medications as prescribed. Wash hands frequently. Stay at home is much as possible, avoid large crowds, do not touch her mouth, eyes, face. Follow-up with your regular doctor in 2 to 3 days for recheck. Return to emergency room immediately for shortness of breath, increased blood in sputum, fever, vomiting, or any concerns.
[2019-05-04] MEDS ORDERED: SODIUM CHL 0.9% 100ML MINI-BAG 100 ML IVPB ONE (18:59)
[2019-05-04 19:32] VITALS: BP 122/69; O2SAT 96
--- NOTE | 2019-05-04 19:34 | RAD ---
EXAM DESCRIPTION: Chest,1 View CLINICAL HISTORY: 63 years Female Cough, hemoptysis, history of breast CA COMPARISON: October 23, 2018. TECHNIQUE: AP view of the chest was obtained. FINDINGS: Cardiac size is within normal limits. Central vessels are not increased. No infiltrates or effusions seen. No consolidation. No pneumothorax. IMPRESSION: No active disease. Electronically signed by: Leanna Gasca MD 05/04/2019 7:33 PM CDT
[2019-05-04] MEDS ORDERED: predniSONE 20 MG TAB PO ONE (20:16)
[2019-05-04] MEDS ORDERED: AZITHROMYCIN 250 MG TAB PO ONE (20:16)
--- NOTE | 2019-05-04 20:19 | CT ---
PROCEDURE: CTA Chest CLINICAL HISTORY: Cough, hemoptysis TECHNIQUE: Contiguous axial images obtained through the chest during angiographic phase following the uneventful administration of IV contrast. Sagittal and coronal reformatted images were provided. MIP reformatted images were provided. This exam was performed according to our departmental dose-optimization program, which includes automated exposure control, adjustment of the mA and/or kV according to patient size and/or use of iterative reconstruction technique. COMPARISON: No prior exams provided for comparison. FINDINGS: Diagnostic quality: There is good opacification of the pulmonary arterial tree. Motion artifact degrades image quality and limits evaluation of segmental and subsegmental vessels. Lungs: No focal consolidation. Airways are patent. Pleura: No effusion. No pneumothorax. Heart and pericardium: The heart is mildly enlarged. Coronary artery calcification. No pericardial effusion. Mediastinum and lebron: No pathologically enlarged lymph nodes. Lower neck and chest wall: Prior right mastectomy. Vessels: No pulmonary arterial filling defects. Mild atherosclerotic disease. No thoracic aortic aneurysm. Upper abdomen: The liver is enlarged and diffusely low in density compatible with steatosis. Bones: Multilevel spondylosis. No acute fracture. IMPRESSION: 1. Motion artifact degrades image quality and limits evaluation of segmental and subsegmental vessels. No central pulmonary embolic disease. 2. Other findings as above. Electronically signed by: Itzel Hamilton MD 05/04/2019 8:17 PM CDT
== END 2019-05-04 20:35 | disposition home or self-care (01) ==
LOC: ER 18:22
DX: J20.9 Acute bronchitis, unspecified (principal); R04.2 Hemoptysis; R19.7 Diarrhea, unspecified; R11.0 Nausea; Z85.3 Personal history of malignant neoplasm of breast; Z87.891 Personal history of nicotine dependence
CPT/HCPCS: 71045; 71275; 80053; 81001; 82550; 82553; 83605; 84145; 84484; 85025; 85379; 85610; 85730; 86140; 87040; 93005; J0696; J7030; J7050; J7512; Q0144